=== PATIENT | female | born 1935 | race Caucasian/White ===

== ENCOUNTER → 2023-08-12 13:56 | Outpatient (REF) | payer MEDICARE, BC, SELFPAY | LOC: WOUND 13:56 | PROVIDERS: ATTENDING PHYSICIAN Surgery; REFERRING PHYSICIAN Internal Medicine | DX: I73.9 Peripheral vascular disease, unspecified (principal); L97.526 Non-pressure chronic ulcer of other part of left foot with bone involvement without evidence of necrosis; F41.1 Generalized anxiety disorder; M06.09 Rheumatoid arthritis without rheumatoid factor, multiple sites | CPT/HCPCS: 99213 ==

== ENCOUNTER → 2023-08-26 13:44 | Outpatient (REF) | payer MEDICARE, BC, SELFPAY | LOC: WOUND 13:44 | PROVIDERS: ATTENDING PHYSICIAN Surgery; FAMILY PHYSICIAN Internal Medicine | DX: L97.526 Non-pressure chronic ulcer of other part of left foot with bone involvement without evidence of necrosis (principal); I73.9 Peripheral vascular disease, unspecified; F41.1 Generalized anxiety disorder; M06.09 Rheumatoid arthritis without rheumatoid factor, multiple sites | CPT/HCPCS: 99213 ==

== ENCOUNTER → 2023-08-30 11:01 | Outpatient (REF) | payer MEDICARE, BC, SELFPAY | LOC: RAD 11:01 | PROVIDERS: ATTENDING PHYSICIAN Surgery; FAMILY PHYSICIAN Internal Medicine; REFERRING PHYSICIAN Surgery Vascular Surgery | DX: L97.526 Non-pressure chronic ulcer of other part of left foot with bone involvement without evidence of necrosis (principal); I73.9 Peripheral vascular disease, unspecified; F41.1 Generalized anxiety disorder; M06.09 Rheumatoid arthritis without rheumatoid factor, multiple sites | CPT/HCPCS: 93922; 93925 ==

== ENCOUNTER → 2023-09-02 14:19 | Outpatient (REF) | payer MEDICARE, BC, SELFPAY | LOC: WOUND 14:19 | PROVIDERS: ATTENDING PHYSICIAN Surgery; FAMILY PHYSICIAN Internal Medicine | DX: L97.526 Non-pressure chronic ulcer of other part of left foot with bone involvement without evidence of necrosis (principal); L97.512 Non-pressure chronic ulcer of other part of right foot with fat layer exposed; I73.9 Peripheral vascular disease, unspecified; F41.1 Generalized anxiety disorder; M06.9 Rheumatoid arthritis, unspecified | CPT/HCPCS: 99213 ==

== ENCOUNTER → 2023-09-09 14:24 | Outpatient (REF) | payer MEDICARE, BC, SELFPAY | LOC: WOUND 14:24 | PROVIDERS: ATTENDING PHYSICIAN Surgery; FAMILY PHYSICIAN Internal Medicine | DX: L97.526 Non-pressure chronic ulcer of other part of left foot with bone involvement without evidence of necrosis (principal); L97.512 Non-pressure chronic ulcer of other part of right foot with fat layer exposed; I73.9 Peripheral vascular disease, unspecified; F41.1 Generalized anxiety disorder; M06.09 Rheumatoid arthritis without rheumatoid factor, multiple sites | CPT/HCPCS: 99212 ==

== ENCOUNTER → 2023-09-16 15:07 | Outpatient (REF) | payer MEDICARE, BC, SELFPAY | LOC: WOUND 15:07 | PROVIDERS: ATTENDING PHYSICIAN Surgery; FAMILY PHYSICIAN Internal Medicine | DX: I73.9 Peripheral vascular disease, unspecified (principal); L97.526 Non-pressure chronic ulcer of other part of left foot with bone involvement without evidence of necrosis; L97.512 Non-pressure chronic ulcer of other part of right foot with fat layer exposed; F41.1 Generalized anxiety disorder; M06.09 Rheumatoid arthritis without rheumatoid factor, multiple sites | CPT/HCPCS: 99212 ==

== ENCOUNTER 2024-09-20 11:27 | Emergency (ER) | payer MEDICARE, BC, SELFPAY ==
[2024-09-20] VITALS (7 sets, daily range): BP systolic 87–163; BP diastolic 41–78; BMI 19.1
[2024-09-20 12:05] LABS: % Basophils 0.8 % (0-2); % Eosinophils 5.8 % (0-6); % Immature Granulocytes 0.4 % (0-0.5); % Lymphocytes 13.9 % (20.5-51.1); % Monocytes 10.1 % (1.7-9.3); Absolute Basophils 0.1 10^3/uL (0-0.2); Absolute Eosinophils 0.4 10^3/uL (0-0.7); Absolute Monocytes 0.7 10^3/uL (0.1-0.6); Absolute Neutrophils 4.9 10^3/uL (1.4-6.5); Hematocrit 35.7 % (37.0-47.0); Hemoglobin 11.8 g/dL (12.0-16.0); Mean Corp Hgb Conc. 33.1 g/dL (33.0-37.0); Mean Corpuscular Hgb 30.9 pg (27.0-31.0); Mean Corpuscular Volume 93.5 fL (81.0-99.0); Mean Platelet Volume 10.6 fL (7.4-10.4); Nucleated Red Blood Cells % 0 %; Platelet Count 218 10^3/uL (130-400); Red Blood Cell Count 3.82 10^6/uL (4.20-5.40); Red Cell Dist. Width 14.1 % (11.5-14.5); White Blood Cell Count 7.1 10^3/uL (4.8-10.8)
[2024-09-20 12:22] LABS: ALT (SGPT) 19 U/L (0-35); AST (SGOT) 25 U/L (14-36); Albumin 3.5 g/dl (3.5-5.0); Alkaline Phosphatase 58 U/L (38-126); Blood Urea Nitrogen 24 mg/dl (7-17); Calcium 9.6 mg/dl (8.4-10.2); Carbon Dioxide 32 mmol/L (22-30); Chloride 104 mmol/L (98-107); Estimated Creatinine Clearance 43 ml/min; Glucose 106 mg/dl (70-99); Potassium 4.2 mmol/L (3.5-5.1); Sodium 138 mmol/L (135-145); Total Bilirubin 0.8 mg/dl (0.2-1.3); Total Protein 5.9 g/dl (6.3-8.2); eGFR > 60.00
--- NOTE | 2024-09-20 12:23 | ED.GENMED ---
History of Present Illness
General
Chief Complaint: Fainting Sensation
Source: patient
Exam Limitations: none
Time Seen by Provider: 09/20/24 11:39
Nursing documentation reviewed up to this point in time: agreed with
History of Present Illness
History of Present Illness:
89-year-old female from [facility] history of orthostatic hypotension presents with feeling dizzy after doing aerobic seated and standing, no chest pain no shortness of breath no abdominal pain no nausea or vomiting no bloody stools no black
stools no hematuria
Past History
Past History
ED Past Medical History: Asthma and Other (Orthostasis)
ED Past Surgical History: None
Social History
Tobacco: Non-smoker
Alcohol: None
Drug: None
Personal:
Living: with family
Employment: Retired
Review of Systems
Review of Systems
All Other Systems: Not applicable
Constitutional: Denies fever or fatigue
EENT: Reports no symptoms
Respiratory: Reports no symptoms; Denies trouble breathing
Cardiac: Reports no symptoms; Denies chest pain, palpitations or syncope
ABD/GI: Denies abdominal pain, nausea, diarrhea, bloody stools or black stools
: Reports no symptoms; Denies bleeding
Musculoskeletal: Reports no symptoms
Neurological: Reports weakness; Denies dizzy, headache or numbness
Endocrine: Reports no symptoms
Phy Exam
Physical Exam
Physical Exam:
Physical Exam
General: no apparent distress, not acutely ill
Neck: No jaundice
Heart: s1/s2 regular rate and rhythm, no murmur. equal radial pulses.
Lungs: no acute respiratory distress. clear bilaterally
Abdomen: Nontender
Neuro: alert and oriented. no focal neurological deficits
Skin: no rash
Psychiatric: well kept. interactive and cooperative
Extremities: no edema.
Course
Orders/Labs/Results
Orders:
Orders
09/20/24 11:46
Electrocardiogram (*1) Urgent
Reason for Study: Chest Pain
EKG- Treatment ONCE
09/20/24 11:48
Complete Blood Count/With Diff Urgent
Comprehensive Metabolic Panel Urgent
Troponin I Urgent
Abnormal Lab Results
09/20/24
11:48
RBC 3.82 L 10^6/uL
(4.20-5.40)
Hgb 11.8 L g/dL
(12.0-16.0)
Hct 35.7 L %
(37.0-47.0)
MPV 10.6 H fL
(7.4-10.4)
Absolute Lymphs (auto) 1.0 L 10^3/uL
(1.2-3.4)
Absolute Monos (auto) 0.7 H 10^3/uL
(0.1-0.6)
Lymphocytes % 13.9 L %
(20.5-51.1)
Monocytes % 10.1 H %
(1.7-9.3)
Carbon Dioxide 32 H mmol/L
(22-30)
BUN 24 H mg/dl
(7-17)
Glucose 106 H mg/dl
(70-99)
Total Protein 5.9 L g/dl
(6.3-8.2)
09/20/24 11:48
09/20/24 11:48
Vital Signs
Initial and Last Documented VS:
Initial Vital Signs
BP
98/54
09/20/24 11:31
Last Documented Vital Signs
Temp Pulse Resp BP Pulse Ox
98.4 F 65 22 163/62 99
09/20/24 11:33 09/20/24 14:00 09/20/24 14:00 09/20/24 13:45 09/20/24 14:00
MDM/Problems Addressed
Differential Diagnosis Includes:
Dehydration orthostasis anemia arrhythmia orthostatic hypotension
MDM/Problems Addressed:
Low blood pressure dizziness
Chronic conditions affecting care:
Ortho stasis
Acute Exacerbation and/or Progression of Chronic Illness:
Orthostasis
*Pulse Oximetry
Patient hypoxic: no
*EKG
Interpreted by ED Provider?: Yes
Interpretation: abnormal
Comparison EKG: no comparison EKG present
Heart Rate: 78
Rate: normal
Rhythm: sinus
Ischemia: non-specific ST changes
*Supervisor Of Operations Interpretation
Rate: normal
Interpretation: normal
Heart Rate: 78
Rhythm: sinus
*Critical Care Note
Total Time (30-74mins, 75-104mins- exclusive of procedures): Not Applicable
Update Note
Update Note:
Update labs are noted, slightly elevated BUN to creatinine ratio, hemoglobin noted patient adamantly denies any dark or bloody stools or hematuria, does have some low blood pressure here will hydrate keep her on the cardiac monitor technician she has a clear
mental status she would like to go home to get her pharmacy meds to 230 delivery
215 patient vital signs of improved
ED Attending Note
-
Portions of this chart may have been created with voice recognition software.� Occasional wrong word or��sound alike� substitutions may have occurred due to the inherent limitations of voice recognition software.
Discharge Plan
Departure
Patient Disposition: Home (Routine Discharge)
Date of Disposition: 09/20/24
Time of Disposition: 14:15
Patient with high blood pressure during this ER visit?: No
Condition: Good
Discharge Problem:
Orthostasis
Instructions: Near Fainting (DC), Dizziness in adults - ED discharge instructions
Prescriptions:
No Action
gabapentin 100 MG capsule
100 mg PO DAILY
gabapentin 100 MG capsule
200 mg PO DAILY
hydroxychloroquine 200 MG tablet
400 mg PO DAILY
fluoxetine 20 MG capsule
20 mg PO DAILY
lorazepam 0.5 MG tablet
0.5 mg PO HS
fluticasone propionate 1 SPRAY spray,suspension
1 spray intranasal DAILY
mometasone [Asmanex Twisthaler] 110 MCG aerosol powdr breath activated
110 mcg IH DAILY
Referrals:
Mary Calvin MD [Family Provider] -
Interventions
Interventions:
*Risk Screen - Suicide Last Done: 09/20/24 11:33
*General Assessment Last Done: 09/20/24 11:33
*Neglect/Abuse Screening Last Done: 09/20/24 11:33
*ED- Fall Risk Assessment Last Done: 09/20/24 11:33
ED- Cardiac Assessment Last Done: 09/20/24 11:33
ED- Neurological Assessment Last Done: 09/20/24 11:38
Discharge Date and Time
Print Language: GERMAN
[2024-09-20 12:29] LABS: Troponin I < 0.012 ng/ml
== END 2024-09-20 14:44 ==
LOC: EMR 11:27
PROVIDERS: EMERGENCY PHYSICIAN Emergency Medicine; FAMILY PHYSICIAN Internal Medicine Geriatric Medicine
DX: R55 Syncope and collapse (principal); R42 Dizziness and giddiness; J45.909 Unspecified asthma, uncomplicated; R79.89 Other specified abnormal findings of blood chemistry
CPT/HCPCS: 99284; 80053; 84484; 85025; 93005

== ENCOUNTER 2025-02-11 17:13 | Inpatient (IN) | payer MEDICARE, BC, SELFPAY ==
[2025-02-11] VITALS (30 sets, daily range): BP systolic 82–211; BP diastolic 37–120; BMI 21.1; BMI 20.1
[2025-02-11 14:13] LABS: Hematocrit 38.8 % (37.0-47.0); Hemoglobin 12.6 g/dL (12.0-16.0); Mean Corp Hgb Conc. 32.5 g/dL (33.0-37.0); Mean Corpuscular Volume 93.0 fL (81.0-99.0); Nucleated Red Blood Cells % 0 %; Platelet Count 223 10^3/uL (130-400); Red Cell Dist. Width 13.2 % (11.5-14.5)
--- NOTE | 2025-02-11 14:31 | ED.CVA ---
History of Present Illness
General
Chief Complaint: CVA/TIA Symptoms
Source: patient
Exam Limitations: none
Time Seen by Provider: 02/11/25 13:54
Onset of Stroke Symptoms
Onset of symptoms known: No
Time pt last seen normal is known: No
History of Present Illness
History of Present Illness:
89-year-old female presents via EMS from [facility] after being found by staff to have weakness on left side. Patient tells me she passed out. Her history is somewhat unclear but she was bending over to reach a knife she
dropped. Patient does note a headache. She has not noticed any visual issues. She does note that her left arm started feeling weak like this may be sometime last night. Last seen normal was last evening.
Past History
Past History
ED Past Medical History: Asthma and Other (Orthostasis)
ED Past Surgical History: None
Social History
Tobacco: Non-smoker
Alcohol: None
Drug: None
Personal:
Living: with family
Employment: Retired
Phy Exam
Physical Exam
Physical Exam:
General: Well-appearing female no acute respiratory distress
HEENT: Normocephalic face is symmetric pupils equal round reactive to light. Patient does have a rightward gaze.
Heart: Regular rate and rhythm
Lungs: Clear no wheeze
Neurologic: Alert oriented to person and place. No facial asymmetry. Patient has a visual field cut on the left side. There is profound weakness of the left arm. No obvious weakness to the left leg.
There does not appear to be any aphasia or dysarthria
Course
Orders/Labs/Results
Orders:
Orders
02/11/25 14:06
Comprehensive Metabolic Panel Urgent
02/11/25 14:07
CT HEAD STROKE ALERT W/o Cont Urgent
Reason For Exam: left sided weakness
Complete Blood Count/With Diff Urgent
02/11/25 14:08
Electrocardiogram (*1) Urgent
Reason for Study: TIA/Stroke
EKG- Treatment ONCE
02/11/25 14:11
CT HEAD/NECK ANG STROKE ALERT Urgent
Reason For Exam: left sided weakness
02/11/25 14:18
CT Brain Perfusion Urgent
Comment:
Reason For Exam: left arm weakness
02/11/25 15:18
Tenecteplase [Tnkase] 13 mg Syringe [Syringe Non-Pump] 0 ml IV NOW
Provider explained risk/benefits to patient &/or caregiver?: Yes
Comment: Dtsergio Anne consented over phone
Blood pressure: 123/47
Abnormal Lab Results
02/11/25 02/11/25
14:06 14:07
RBC 4.17 L 10^6/uL
(4.20-5.40)
MCHC 32.5 L g/dL
(33.0-37.0)
Absolute Neuts (auto) 7.3 H 10^3/uL
(1.4-6.5)
Absolute Lymphs (auto) 1.0 L 10^3/uL
(1.2-3.4)
Absolute Monos (auto) 0.9 H 10^3/uL
(0.1-0.6)
Neutrophils % 75.6 H %
(42.2-75.2)
Lymphocytes % 9.9 L %
(20.5-51.1)
Carbon Dioxide 31 H mmol/L
(22-30)
BUN 23 H mg/dl
(7-17)
Glucose 107 H mg/dl
(70-99)
02/11/25 14:07
02/11/25 14:06
Vital Signs
Initial and Last Documented VS:
Initial Vital Signs
Temp Pulse Resp BP Pulse Ox
98.1 F 57 21 123/47 98
02/11/25 13:46 02/11/25 13:46 02/11/25 13:46 02/11/25 13:46 02/11/25 13:46
Last Documented Vital Signs
Temp Pulse Resp BP Pulse Ox
98.1 F 57 21 123/47 98
02/11/25 13:46 02/11/25 13:46 02/11/25 13:46 02/11/25 13:46 02/11/25 14:35
MDM/Problems Addressed
Differential Diagnosis Includes:
Left sided weakness with visual field cut. Concern for recent stroke. Last normal last evening. She is not anticoagulated. Given timing at this point not a TNK candidate however did run this by neurology. CT of head CTA angio of head and neck
as well as perfusion study were ordered. Stroke alert called
Report from radiology plain CT of head without acute findings
*Pulse Oximetry
SaO2: 98
Oxygen Mode of Delivery: Room air
Patient hypoxic: no
*Critical Care Note
Total Time (30-74mins, 75-104mins- exclusive of procedures): Not Applicable
Update Note
Update Note:
6 patient seen and evaluated by neurology. CT perfusion study was ordered on top of angio of head and neck. Plain CT head negative. Perfusion study did show 28 cc area of penumbra. Neurology discussed with patient and patient's family and
suggested an off label use of TNK secondary to her large deficit and penumbra on CTP. TNK was ordered by neurology. Admitting team was made aware
ED Attending Note
-
Portions of this chart may have been created with voice recognition software.� Occasional wrong word or��sound alike� substitutions may have occurred due to the inherent limitations of voice recognition software.
Discharge Plan
Departure
Patient Disposition: Admit
Date of Disposition: 02/11/25
Time of Disposition: 15:31
Presentation/result/management discussed w/ accepting MD/DO: Hospitalist
Patient with high blood pressure during this ER visit?: No
Discharge Problem:
Acute cerebrovascular accident (CVA)
Prescriptions:
No Action
gabapentin 100 MG capsule
100 mg PO DAILY
gabapentin 100 MG capsule
200 mg PO DAILY
hydroxychloroquine 200 MG tablet
400 mg PO DAILY
lorazepam 0.5 MG tablet
0.5 mg PO HS
propranolol 10 mg Tablet
10 mg PO BID
sertraline 25 mg Tablet
25 mg PO DAILY
mirtazapine 15 mg Tablet
15 mg PO HS
Rx Instructions:
half tab
melatonin 5 mg Tablet
5 mg PO HS PRN (Reason: sleep)
Referrals:
Mary Calvin MD [Family Provider, Internal Medicine]
Interventions
Interventions:
*General Assessment Last Done: 02/11/25 13:46
*Neglect/Abuse Screening Last Done: 02/11/25 13:46
ED- Neurological Assessment Last Done: 02/11/25 15:30
Discharge Date and Time
Print Language: UKRAINIAN
[2025-02-11 14:33] LABS: ALT (SGPT) 16 U/L (0-35); AST (SGOT) 21 U/L (14-36); Albumin 3.8 g/dl (3.5-5.0); Alkaline Phosphatase 62 U/L (38-126); Blood Urea Nitrogen 23 mg/dl (7-17); Calcium 9.8 mg/dl (8.4-10.2); Carbon Dioxide 31 mmol/L (22-30); Chloride 104 mmol/L (98-107); Glucose 107 mg/dl (70-99); Potassium 4.8 mmol/L (3.5-5.1); Sodium 139 mmol/L (135-145); Total Protein 6.3 g/dl (6.3-8.2); eGFR > 60.00
--- NOTE | 2025-02-11 15:24 | CON.NEURO ---
Neuro Assessment/Plan
Assessment
CT perfusion showing right parietal stroke, 3cc core, 28 cc penumbra
CTA head/neck imgs rev'd, no LVO. report showing right ICA focal calcification, 41% stenosis, streak artifact
patient treated with TNK, off label as it is out of the 4.5 hr window though good evidence for use of TNK 4.5-24 hrs with favorable perfusion scan
Dtsergio Anne consented over the phone, as patient with difficulty comprehending. delay due to calling multiple family members trying to get informed consent
post TNK routine care Admit to MICU for 24 hours of frequent neurochecks.�
neurochecks q1, Frequent vital signs Q15min x 2hrs, then Q30min x 6hrs, then Q1H x 16hrs until stable from the start of TNK.�
�tele, accuchecks/ISS. Repeat Head CT in 24 hours
Blood pressure goals: <180/105 and MAP 80-100� in the acute period.� If BP elevated for 2 readings, preferred agents include IV labetalol or nicardipine.� Vasopressors as necessary to maintain MAP and CPP.�
Glucose goals: Maintain euglycemia using sliding scale insulin. If glucose >180 for two consecutive readings, please use MICU insulin protocol.�Temperature goals: maintain normothermia
Consultation
Order
Date of Consultation: 02/11/25
Requesting Provider: Popeye
Reason for Consult: stroke
Subjective/Objective
Subjective Data
Date of Service: February 11, 2025
from ED notes:
89-year-old female presents via EMS from [facility] after being found by staff to have weakness on left side. Patient tells me she passed out. Her history is somewhat unclear but she was bending over to reach a knife she
dropped. Patient does note a headache. She has not noticed any visual issues. She does note that her left arm started feeling weak like this may be sometime last night. Last seen normal was last evening.
patient reports waking up with the symptoms ~7:30 AM
Was not initially a stroke alert as she was out of the 4.5 hr window however over the phone I advised stroke alert/CTA/perfusion based on presence of cortical signs, and potential for thrombectomy and saw the patient emergently when perfusion scan
showed 3 cc core and 28 cc penumbra on rapid ai.
Objective Data
Vital Signs
Temp Pulse Resp BP Pulse Ox
36.7 C 57 21 123/47 98
02/11/25 13:46 02/11/25 13:46 02/11/25 13:46 02/11/25 13:46 02/11/25 14:35
Lab Results
02/11/25 14:07
02/11/25 14:06
Sodium 139 mmol/L (135-145) 02/11/25 14:06
Potassium 4.8 mmol/L (3.5-5.1) 02/11/25 14:06
BUN 23 mg/dl (7-17) H 02/11/25 14:06
Glucose 107 mg/dl (70-99) H 02/11/25 14:06
Calcium 9.8 mg/dl (8.4-10.2) 02/11/25 14:06
Patient Allergies
chocolate flavor Allergy (Verified 02/11/25 13:57)
respiratory symptoms
[place] And Derivatives Allergy (Verified 02/11/25 13:57)
eczema
latex Allergy (Verified 02/11/25 13:57)
unsure, tested high
dairy products Allergy (Uncoded 02/11/25 13:57)
respiratory, mild
environmental allergies Allergy (Uncoded 02/11/25 13:57)
respiratory symptoms
melons Allergy (Uncoded 02/11/25 13:57)
respiratory symptoms
opiates, codeine + morphine Allergy (Uncoded 02/11/25 13:57)
violently ill
CVA Assessment
Onset of Stroke Symptoms
Time pt last seen normal is known: Yes
Date last time pt seen normal: 02/10/25
NIH Stroke Score
Level of Consciousness: 0 - Alert
LOC Questions: 0-Answers both correctly
LOC Commands: 0-Performs both correctly
Best Horizontal Gaze: 0-Normal
Visual Oliveros: 2=Full hemianopia
Facial Palsy: 1=Minor paralysis
Motor - Right Arm: 0=No drift 10 seconds
Motor - Left Arm: 2=Partial vs. gravity
Motor - Right Le-No drift 5 seconds
Motor - Left Le-Drift < 5 seconds
Limb Ataxia: 0-Absent
Sensation: 0-Normal
Best Language: 0-No aphasia
Dysarthria: 0-Normal
Extinction and Inattention: 0-No abnormality
NIH Total Score:: 6
Physical Exam
-
left homonymous hemianopsia
L facial droop
LUE/LE grossly 4/5
right side full strength
Medications
-
Active Medications
Generic Name Dose Route Start Last Admin
Trade Name Frejustina PRN Reason Stop Dose Admin
Tenecteplase 13 mg/ Device 2.6 mls @ 1,872 mls/hr 02/11/25 15:18
IV 02/11/25 15:19
NOW STA
Protocol
Home Medications
�Medication �Instructions �Recorded
fluoxetine 20 mg capsule 20 mg PO DAILY 11/15/16
fluticasone propionate 50 1 spray intranasal DAILY 11/15/16
mcg/actuation nasal
spray,suspension
gabapentin 100 mg capsule 100 mg PO DAILY 11/15/16
gabapentin 100 mg capsule 200 mg PO DAILY 11/15/16
hydroxychloroquine 200 mg tablet 400 mg PO DAILY 11/15/16
lorazepam 0.5 mg tablet 0.5 mg PO HS 11/15/16
mometasone 110 mcg/actuation (7 110 mcg IH DAILY 11/15/16
doses) breath activated powder
inhaler (Asmanex Twisthaler)
[2025-02-11] MEDS: TNKASE 2.6 MG IV (15:30)
--- NOTE | 2025-02-11 15:41 | HPS.HSE ---
Family Physician
-
Family Physician: Mary Calvin
Chief Complaint
-
Left Sided Weakness
History of Present Illness
Patient is an 89 y/o female past medical history of asthma, orthostatic hypotension, peripheral neuropathy and mild cognitive impairment who presents with left sided weakness. Patient is a limited historian. Patient tells me she did get dizzy and
passed out/fell. Some notes indicate she did hit her head. She was found on the floor of her apartment at [facility] and was noted to have left sided weakness. EMS brought patient to the emergency department evaluation and a stroke alert was
called. Patient was evaluated by Neurology who noted left visual field cut, left facial droop and left sided weakness. Decision was made for patient to receive Tenecteplase due significant deficits. Reviewed with nursing who reports that left sided
weakness is improving following Teneceplase. However shortly after my evaluation patient began complaining of increased posterior head/neck pain
Medical History
Past Medical History
Past Medical History: Reports Other
Additional Past Medical History:
Asthma / Bronchiectasis
Orthostatic Hypotension
Peripheral Neuropathy
Rheumatoid Arthritis
Mild Cognitive Impairment
Anxiety / Depression / Insomnia
Chronic Constipation
Past Surgical History: Reports Other
Additional Past Surgical History:
Right Shoulder Rotator Cuff Repair
Santillan Neuroma Removal
Cataract
Social History
Tobacco: Non-smoker
Living: Other (Apartment at [facility])
Family History
Family History: Not pertinent
Allergies / Home Medications
Allergies reflects when Allergies were last updated in [employer].
Home Medications with original date entered in [employer]
Allergy/Medication List:
Allergies
Allergy/AdvReac Type Severity Reaction Status Date / Time
chocolate flavor Allergy respiratory Verified 02/11/25 13:57
symptoms
[place] And Derivatives Allergy eczema Verified 02/11/25 13:57
latex Allergy unsure, Verified 02/11/25 13:57
tested high
dairy products Allergy respiratory, Uncoded 02/11/25 13:57
mild
environmental allergies Allergy respiratory Uncoded 02/11/25 13:57
symptoms
melons Allergy respiratory Uncoded 02/11/25 13:57
symptoms
opiates, codeine + morphine Allergy violently Uncoded 02/11/25 13:57
ill
Home Medications
hydroxychloroquine 200 mg tablet 200 mg PO DAILY 11/15/16
lorazepam 0.5 mg tablet 0.5 mg PO BID 11/15/16
calcium 315 mg (as citrate)-vitamin D3 5 mcg (200 unit) tablet (Calcium Citrate + D) 1 tab PO DAILY 02/11/25
carboxymethylcellulose sodium 1 % eye drops (Artificial Tears (carboxymethylcellulose)) 1 drp ophthalmic (eye) QID 02/11/25
gabapentin 300 mg capsule 300 mg PO HS 02/11/25
melatonin 5 mg tablet 5 mg PO HS sleep 02/11/25
mirtazapine 15 mg tablet 7.5 mg PO HS 02/11/25
mometasone 220 mcg/actuation(30 doses) breath activated powder inhaler (Asmanex Twisthaler) 1 inh inhalation HS 02/11/25
multivitamin 1 tab PO DAILY 02/11/25
polyethylene glycol 3350 17 gram/dose oral powder (Miralax) 17 g PO BID 02/11/25
propranolol 10 mg tablet 10 mg PO BID 02/11/25
sertraline 25 mg tablet 25 mg PO DAILY 02/11/25
Review of Systems
-
Unable to obtain full review of systems at this time due to: Other (Cognitive Impairment)
Physical Exam
Vital Signs
Vital Signs
Temp Pulse Resp BP Pulse Ox
98.1 F 63 16 146/60 98
02/11/25 13:46 02/11/25 15:32 02/11/25 15:32 02/11/25 15:32 02/11/25 14:35
Physical Exam
General: Comfortable and Conversant
HEENT: Anicteric and Moist mucous membranes
Respiratory: Clear and Non Labored Respirations
Cardiac: S1/S2 and Regular Rhythm
GI: Soft and Non Tender
Rectal: Deferred by Provider
Musculoskeletal: No Clubbing, No Cyanosis and No Edema
Skin: Warm and Dry
Neuro: Awake, Alert, No Motor Deficits (During my evaluation) and Facial Droop (Left facial )
Psych: Calm
Laboratory Results
-
02/11/25 14:07
02/11/25 14:06
Laboratory Results
Total Bilirubin 0.6 mg/dl (0.2-1.3) 02/11/25 14:06
AST 21 U/L (14-36) 02/11/25 14:06
ALT 16 U/L (0-35) 02/11/25 14:06
Alkaline Phosphatase 62 U/L (38-126) 02/11/25 14:06
Data Reviewed
-
CT Scan: Report Reviewed by me
Lab Data: Labs Reviewed by me
Impression/Plan
-
Acute Right Parietal Stroke
-Patient evaluated by Neurology and given TNK in ED
-Follow-up post-TNK protocol with frequent neurochecks, bedrest and no antiplatelets
-Blood pressure goals: <180/105 and MAP 80-100 in acute setting
-Check Brain MRI
-Check Carotid US as Neck CT indicates focal calcification of right internal carotid artery but limited evaluation due to streak artifact
Asthma / Bronchiectasis, no acute exacerbation
-Continue Asmanex
Peripheral Neuropathy
-Continue gabapentin
Mild Cognitive Impairment
-Monitor mental status
Anxiety / Depression / Insomnia
-Continue lorazepam
-Continue sertraline
-Continue mirtazapine and melatonin
Rheumatoid Arthritis
-Continue hydroxychloroquine
DVT proph: SCDs
Code Status: DNR per Transfer Paperwork and confirmed with daughter Omid via phone at time of admission
[2025-02-11] MEDS: APRESOLINE 5 MG IV (17:00)
[2025-02-11 17:47] LABS: Glucose - Point of Care 87 mg/dl (70-99)
--- NOTE | 2025-02-11 19:17 | W.PN.UPDATE ---
Update Note
Progress Note Update
Patient seen independently.
Please see PA note for full details
89 y/o woman with the past medical history of:
asthma,
orthostatic hypotension,
peripheral neuropathy
mild cognitive impairment
presents with left sided weakness. (Patient is a limited historian). She reports that she felt dizzy and passed out/fell. She was found on the floor of her apartment at [facility] and was noted to have left sided weakness. Patient was evaluated
by Neurology who noted left visual field cut, left facial droop and left sided weakness. The decision was made for patient to receive Tenecteplase due significant deficits. Nursing in the ED reports that left sided weakness improved following
Teneceplase.
Past Medical History
Asthma / Bronchiectasis
Orthostatic Hypotension
Peripheral Neuropathy
Rheumatoid Arthritis
Mild Cognitive Impairment
Anxiety / Depression / Insomnia
Chronic Constipation
Right Shoulder Rotator Cuff Repair
Santillan Neuroma Removal
Cataract
Physical Exam
General: Comfortable
Respiratory: Clear
Cardiac: S1/S2
GI: Soft
Skin: Warm
Neuro: Awake, Facial Droop (Left facial )
Psych: Calm
Impression/Plan
1. Acute Right Parietal Stroke - evaluated by Neurology and given TNK in ED
post-TNK protocol
BP goals: <180/105 and MAP 80-100 in acute setting
Brain MRI
Carotid US
Please see PA note for full details on
Asthma / Bronchiectasis, no acute exacerbation
Peripheral Neuropathy
Mild Cognitive Impairment
Anxiety / Depression / Insomnia
Rheumatoid Arthritis
--- NOTE | 2025-02-11 20:30 | W.PN.UPDATE ---
Update Note
Progress Note Update
02/11/25
1999- Family requested update and answered all questions. Patient having some headache/pain located where hematoma is on back of the head. Will give prn Tylenol and lidocaine patch for back of the neck.
[2025-02-11] MEDS: MIRALAX 17 GRAMS PO (20:32)
[2025-02-11] MEDS: ATIVAN 0.5 MG PO (20:32)
[2025-02-11] MEDS: INDERAL 10 MG PO (20:33)
[2025-02-11] MEDS: TYLENOL 650 MG PO (20:34)
[2025-02-11] MEDS: LIDOCAINE 4% PATCH 1 PATCH TOPICAL (20:35)
--- NOTE | 2025-02-11 20:45 | PTCARENOTE ---
At 15:30 patient admitted from ED status post TNK administered at 15:30; NIH done with ER nurse at bedside with score of 4 with deficit of left arm and left eye vision;
AAO x 3 Anxiety
normal sinus rhythm no edema
on RA lungs clear
Abdomen soft round
voided on bedpan
left arm: pt tends to keep her left arm flex but able to keep it straight, able to make fist able to lift arm off bed slightly .
[2025-02-11] MEDS: FLOVENT 44 MCG INHALER 1 PUFF INH (21:17)
--- NOTE | 2025-02-11 21:30 | PTCARENOTE ---
Report received from previous shift RN [id number]. Pt in bed with family members at bedside. Tandem NIHSS performed with offgoing shift RN, see flowsheet for full neuro assessment details. Pt is AAO3, anxious, pupils equal/reactive, tremor noted in R
hand. Pt reports chronic neuropathy in b/l feet. Reports pain in L shoulder and hip and posterior headache (unchanged from earlier in day). Telemetry rhythm reveals SR, HR 70-80's, no edema noted, palpable peripheral pulses present, knee high SCDs
placed per MD order. Lung sounds are clear throughout, decreased in b/l base, pt denies SOB/cough, pox 95-97% on room air. +BS, abdomen round nontender. Pt passed swallow evaluation performed on previous shift. Assisted pt onto bedpan, voided yellow
urine without incidence. L w int and R AC int's flushed and patent, capped. Skin with scattered bruising from fall prior to admission. Posterior scalp with large bruise, ice pack provided.
Pt's daughters arrived at bedside. Audra COMMERCIAL COLLECTIONS SPECIALIST to room and answered all questions. COMMERCIAL COLLECTIONS SPECIALIST ordered lidoderm patch for posterior neck. PRN Tylenol administered for headache.
Safe environment maintained, call villalba within reach. Will monitor closely.
[2025-02-11] MEDS: REMERON 7.5 MG PO (22:04)
[2025-02-11] MEDS: NEURONTIN 300 MG PO (22:05)
[2025-02-11] MEDS: MELATONIN 5 MG PO (22:05)
[2025-02-11 22:29] LABS: INR 0.91; PT 12.6 Sec (11.4-14.6)
[2025-02-11 22:30] LABS: APTT 20.3 Sec (23.4-35.0)
[2025-02-11] MEDS: NSS 1000 IV (23:56)
--- NOTE | 2025-02-11 23:57 | PTCARENOTE ---
Pt sleeping whe undisturbed, wakens easily to verbal stimuli. Denies current headache.
Pt's SBP in the 80's, notified state federal relations deputy director RELOCATION MANAGER, Audra. RELOCATION MANAGER orderd bolus to infuse over 2 hours and then follow with maintenance IVF.
Will monitor.
[2025-02-12] VITALS (31 sets, daily range): BP systolic 87–155; BP diastolic 35–78; BMI 20.5
[2025-02-12] MEDS: NSS 1000 IV ×2 (02:12→12:45)
[2025-02-12 03:48] LABS: Hematocrit 33.1 % (37.0-47.0); Hemoglobin 10.8 g/dL (12.0-16.0); Mean Corp Hgb Conc. 32.6 g/dL (33.0-37.0); Mean Corpuscular Volume 93.5 fL (81.0-99.0); Platelet Count 189 10^3/uL (130-400); Red Cell Dist. Width 13.1 % (11.5-14.5)
--- NOTE | 2025-02-12 04:00 | PTCARENOTE ---
Pt sleeping when undisturbed. Wakens easily to verbal stimuli. Pt's BP improved with IVF bolus/continuous IVF, reviewed w YONG Mccoy. Repositioning pt Q2H for skin integrity. Pt's bruising on her posterior head has extended down to the L side of
her neck/behind her ear and bruising now noted on L scapula...bruising was outlined in black marker by RN.
Pt appears less ataxic than at the start of the shift, visual cuts remain unchanged. Will continue to monitor closely.
[2025-02-12 04:13] LABS: Blood Urea Nitrogen 16 mg/dl (7-17); Calcium 8.5 mg/dl (8.4-10.2); Carbon Dioxide 27 mmol/L (22-30); Chloride 109 mmol/L (98-107); Estimated Creatinine Clearance 52 ml/min; Glucose 111 mg/dl (70-99); HDL Cholesterol 69 mg/dl; LDL Cholesterol, Calculated 77 mg/dl; Magnesium 2.0 mg/dl (1.6-2.3); Potassium 4.1 mmol/L (3.5-5.1); Sodium 138 mmol/L (135-145); Very Low Density Lipoprotein 8 mg/dl (0-30); eGFR > 60.00
[2025-02-12 04:17] LABS: INR 0.96; PT 13.1 Sec (11.4-14.6)
[2025-02-12 04:18] LABS: APTT 23.1 Sec (23.4-35.0)
[2025-02-12] MEDS: FLOVENT 44 MCG INHALER INH (07:23)
[2025-02-12] MEDS: ATIVAN 0.5 MG PO ×2 (09:02→20:52)
[2025-02-12 09:03] LABS: Glycohemoglobin (HgbA1c) 5.7 % (4.0-5.6)
[2025-02-12] MEDS: PLAQUENIL 200 MG PO (09:03)
[2025-02-12] MEDS: ZOLOFT 25 MG PO (09:03)
[2025-02-12] MEDS: TYLENOL 650 MG PO ×2 (09:03→20:56)
[2025-02-12] MEDS: MIRALAX 17 GRAMS PO ×2 (09:04→20:52)
--- NOTE | 2025-02-12 09:12 | W.PN.NEURO.1 ---
Addendum entered and electronically signed by Noe Sarah MD 02/12/25 14:22:
Studies reviewed.
I have personally examined the patient. I reviewed and agree with the CUSTOMER STRATEGY MANAGER's Note.
My addenda:
Awake, alert, interactive. No acute distress.
Speech intact.
Follows 2-step requests w/o difficulty. No tremor.
Extra-ocular movements grossly intact.
Facial movements full and symmetric. Hearing intact to normal conversational volume.
Normal UE movements bilaterally.
Neck: full ROM.
Chest: no dyspnea
Heart: no JVD
Ext: (-) Clubbing, (-) Cyanosis, (-) Edema
IMPRESSIONS/RECOMMENDATIONS:
Abrupt onset of left-sided weakness with left homonymous hemianopsia following fall and injury to back of head
Likely due to right middle cerebral artery acute ischemic stroke
Would provide aspirin 81 mg starting 24 hours after tenecteplase provision
Goal of normotension
Will follow MRI of brain results
Start atorvastatin 40 mg due to LDL greater than 70 although limited probable help in a person of this advanced age
D/W patient / nursing
All questions answered.
Will continue to follow pending results.
Original Note:
Today's Communication / Plan
-
� goal normotension
� check MRI of the brain as planned
� hold all antiplatelets, OAC meds, DOAC meds, heparinoids 24 hours s/p TNK
� LDL 77 with goal <70, start atorvastatin 40mg nightly
� goal blood glucose levels for patient would be less than 180 mg/dL
� Speech, PT, OT evaluations needed
� Physiatry consultation warranted
� medical educational materials will be provided
� neurochecks and NIHSS per unit guidelines
Neuro Assessment/Plan
Assessment
Patient is an 89 y/o female past medical history of asthma, orthostatic hypotension, peripheral neuropathy and mild cognitive impairment who presented to [facility] on 02/11/2025 with left sided weakness now s/p TNK.
CTA head/neck imgs rev'd, no LVO. report showing right ICA focal calcification, 41% stenosis, streak artifact
CT perfusion showing right parietal stroke, 3cc core, 28 cc penumbra
Brain MRI: pending
Carotid US: pending
Labs: Cholesterol 154, LDL 77
patient s/p TNK on 02/11/2025 at 1519
Plan
Impression: Abrupt onset of left sided weakness, left visual field cut and left facial weakness in the setting of an acute ischemic stroke
Recommendations:
� goal normotension
� check MRI of the brain as planned
� hold all antiplatelets, OAC meds, DOAC meds, heparinoids 24 hours s/p TNK then may start aspirin 81 mg and clopidogrel 75 mg for 21 days followed by monotherapy with aspirin
� LDL 77 with goal <70, start atorvastatin 40 mg nightly
� goal blood glucose levels for patient would be less than 180 mg/dL
� Speech, PT, OT evaluations needed
� Physiatry consultation warranted
� medical educational materials will be provided
� neurochecks and NIHSS per unit guidelines
All questions encouraged and answered, plan of care discussed with Dr. Sarah, nurse and patient
Subjective/Objective
Subjective Data
Date of Service: February 12, 2025
Right handed. No acute events overnight. Denies SOB or chest pain. Continues to have vision difficulties. Continues to have weakness to LUE.
Objective Data
Vital Signs
Temp Pulse Resp BP Pulse Ox
97.9 F 59 16 136/42 97
02/12/25 08:10 02/12/25 07:30 02/12/25 07:30 02/12/25 07:30 02/12/25 07:30
Lab Results
02/12/25 03:28
02/12/25 03:28
PT 13.1 Sec (11.4-14.6) 02/12/25 03:28
INR 0.96 02/12/25 03:
APTT 23.1 Sec (23.4-35.0) L 02/12/25:
Sodium 138 mmol/L (135-145) 02/12/25 03:
Potassium 4.1 mmol/L (3.5-5.1) 02/12/25:
BUN 16 mg/dl (7-17) 02/12/25:
Glucose 111 mg/dl (70-99) H 02/12/25:
Calcium 8.5 mg/dl (8.4-10.2) 02/12/25
Phosphorus 4.0 mg/dl (2.5-4.5) 02/12/25:
LDL Cholesterol, Calc 77 mg/dl 02/12/25:
Patient Allergies
chocolate flavor Allergy (Verified 02/11/25 13:57)
respiratory symptoms
[place] And Derivatives Allergy (Verified 02/11/25 13:57)
eczema
latex Allergy (Verified 02/11/25 13:57)
unsure, tested high
dairy products Allergy (Uncoded 02/11/25 13:57)
respiratory, mild
environmental allergies Allergy (Uncoded 02/11/25 13:57)
respiratory symptoms
melons Allergy (Uncoded 02/11/25 13:57)
respiratory symptoms
opiates, codeine + morphine Allergy (Uncoded 02/11/25 13:57)
violently ill
Physical Exam
-
General: No Apparent Distress and Comfortable
HEENT: Normocephalic, Atraumatic and Anicteric
Neck: Full Range of Motion
Respiratory: No Dyspnea
Cardiac: No JVD
GI: Non-distended
Skin: Unremarkable
Extremities: No Clubbing, No Cyanosis and No Edema
Psych: Unremarkable
Extended Neurological Exam
Mood & Affect: Mood Unremarkable
Attention Span & Concentration: Awake, Alert, Interactive and No Difficulty with 2 Step Request
Memory: Unremarkable
Tremor: Hand Tremor Absent and Head Tremor Absent
Speech: Quality Unremarkable, Quantity Unremarkable and Rate of Production Unremarkable
Cranial Nerve II: Left Eye: Visual Oliveros Reduced
Cranial Nerve II: Right Eye: Visual Oliveros Intact
Cranial Nerves III, IV, : Extraocular Movement: Extraocular Movement Full in all Directions
Cranial Nerve VII: Facial Symmetry: Reduced (left)
Cranial Nerve VIII: Hearing: Unremarkable Hearing to Normal Conversational Volume
Muscle Strength, Overall: Reduced on Left (LUE 4+/5)
Pronator Drift: Drift in Left Upper Extremity
Coordination: [id number] Testing Unremarkable and Reaches for Objects without Difficulty
Data Reviewed
-
CT-A: Report Reviewed and Image Reviewed
CT-Perfusion: Report Reviewed and Image Reviewed
CT Head: Report Reviewed and Image Reviewed
MRI Head: Ordered
Carotid Ultrasound: Ordered and Pending
Labs: Report Reviewed
Lipid Profile: Report Reviewed
Reviewed with: Physician, Nurse and Patient
Old Records: Summarized
[2025-02-12] MEDS: INDERAL 10 MG PO ×2 (09:22→20:52)
--- NOTE | 2025-02-12 09:29 | PTOTSP ---
Speech Therapy Evaluation:
Pt with chronic risk factor of dysphagia including asthma/COPD, acutely compounded by acute CVA. Despite this, oropharyngeal swallow appears functional at bedside. No overt s/sx of aspiration across session, CXR without pneumonia, WBC WNL, and pt
without dysphagia hx.
Recommend:
1. Continue regular solids and thin liquids
2. Medications as tolerated
3. General aspiration precautions
4. Partial assistance with PO given L sided weakness
5. COLORER HIDES AND SKINS to follow to monitor tolerance of diet and administer cognitive assessment as appropriate.
--- NOTE | 2025-02-12 09:30 | W.PN.HOSP.TC ---
Today's Communication/Plan
-
MRI
Carotid US
f/w Neurology & ICU & speech, PT reommendations
Assessment / Plan
Assessment / Plan
Physical Exam
General: Comfortable and Conversant
HEENT: Anicteric and Moist mucous membranes
Respiratory: Clear and Non Labored Respirations
Cardiac: S1/S2 and Regular Rhythm
GI: Soft and Non Tender
Rectal: Deferred by Provider
Musculoskeletal: No Clubbing, No Cyanosis and No Edema
Skin: Warm and Dry
Neuro: Awake, Alert, No Motor Deficits (During my evaluation) and Facial Droop (Left facial )
Psych: Calm
Acute Right Parietal Stroke
-Patient evaluated by Neurology and given Tenecteplase 02/11
-Follow-up post-TNK protocol with frequent neuro-checks, bedrest and no antiplatelets
-Blood pressure goals: <180/105 and MAP 80-100 in acute setting
-Check Brain MRI
- HGB A1C 5.7
-Check Carotid US as Neck CT indicates focal calcification of right internal carotid artery but limited evaluation due to streak artifact
Appreciate neurology & ICU doctors help
Asthma / Bronchiectasis, no acute exacerbation
-Continue Asmanex
Peripheral Neuropathy
-Continue gabapentin
Mild Cognitive Impairment
-Monitor mental status
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
-Continue lorazepam
-Continue sertraline
-Continue mirtazapine and melatonin
Rheumatoid Arthritis
-Continue hydroxychloroquine
DVT proph: SCDs
Code Status: DNR per Transfer Paperwork and confirmed with daughter Omid via phone at time of admission
Total time spent to see the patient, examine the patient, review data and lab results, discuss treatment plan with patient, nursing staff around 55 minutes
Anticipated Discharge: > 48 hours
Subjective/Interval History
-
Date of Service: February 12, 2025
She reports muscles aches
she reports left hand weakness
Denies headache or confusion
Objective Data
-
Labs:
Laboratory Results
02/11/25 02/12/25
22:12 03:28
WBC 7.3
Hgb 10.8 L
Hct 33.1 L
Plt Count 189
PT 12.6 13.1
INR 0.91 0.96
APTT 20.3 L 23.1 L
Sodium 138
Potassium 4.1
Chloride 109 H
Carbon Dioxide 27
BUN 16
Creatinine 0.6
Glucose 111 H
Calcium 8.5
Vital Signs:
Vital Signs
Temp Pulse Resp BP Pulse Ox
97.9 F 63 14 130/74 97
02/12/25 08:10 02/12/25 09:22 02/12/25 09:06 02/12/25 09:22 02/12/25 09:00
I&O
02/11/25 02/12/25 02/13/25
06:59 06:59 06:59
Intake Total 1979 100 / 100
Output Total
Balance 1055 / 1155 100 / 100
--- NOTE | 2025-02-12 09:45 | PTCARENOTE ---
Rec'd care of patient at 0700. Patient alert and oriented. Confused/forgetful at times. PERRLA. NIH-6. Neglecting left side. Left visual field cut. MAEx4. Weak in LUE. Reduced sensation in LUE, LLE. Hx neuropathy in b/l feet. NSR on tele. No edema.
Palpable pulses. Lung sounds cta on RA. +BS. Cleared by speech for regular diet. Voiding via bedpan. Bruising scattered throughout body; outlined to track spread. IVFs infusing through peripheral INT. VSS. Echo completed. Bed alarm on and safe
environment maintained. See worklist for full assessment and care.
--- NOTE | 2025-02-12 11:35 | CON.INTV ---
Consultation
Consultation Request
Date/Time Consultation Requested: 02/12/2025
Date/Time Consultation Performed: 02/12/2025
Requesting Provider: Dr. Lara
Performing Provider: Dr. Moose Us
Reason for Consultation: Acute CVA
Medical History
-
History of Present Illness:
89-year-old woman with past medical history significant for asthma, orthostatic hypotension, peripheral neuropathy, mild cognitive impairment who came to the hospital complaining of left-sided weakness. Patient is unable to provide detailed
history. There is report of patient passing out and falling. Possibly having some mild head trauma.
She was found at [facility] in the floor of her apartment noted to have left-sided weakness. She was brought into the emergency room via EMS.
She was found to have a field cut, left facial droop and left-sided weakness. She was deemed candidate for tenecteplase.
Transferred to the critical care unit for further monitoring.
After tenecteplase patient started complaining of increased posterior head pain and she was found to have an hematoma that expanded overnight.
This morning denies nausea or vomiting
Continues to have left-sided weakness
Continues to have a feel visual cut.
Denies nausea or vomiting.
Past Medical History
Past Medical History: Other (See assessment and plan)
Social History
Tobacco: Non-smoker
Alcohol: None
Living: Detention ([facility])
Employment: Retired
Family History
Family History: Reviewed & Not Pertinent
Allergies / Home Medications
Allergies
Allergy/AdvReac Type Severity Reaction Status Date / Time
chocolate flavor Allergy respiratory Verified 02/11/25 13:57
symptoms
[place] And Derivatives Allergy eczema Verified 02/11/25 13:57
latex Allergy unsure, Verified 02/11/25 13:57
tested high
dairy products Allergy respiratory, Uncoded 02/11/25 13:57
mild
environmental allergies Allergy respiratory Uncoded 02/11/25 13:57
symptoms
melons Allergy respiratory Uncoded 02/11/25 13:57
symptoms
opiates, codeine + morphine Allergy violently Uncoded 02/11/25 13:57
ill
Home Medications
�Medication �Instructions �Recorded �Confirmed �Last Taken �Type
hydroxychloroquine 200 mg tablet 200 mg PO DAILY RHEUMATOID 11/15/16 02/11/25 Unknown History
ARTHRITIS
lorazepam 0.5 mg tablet 0.5 mg PO BID Mental Health/Anxiety 11/15/16 02/11/25 Unknown History
calcium 315 mg (as 1 tab PO DAILY Supplement 02/11/25 02/11/25 Unknown History
citrate)-vitamin D3 5 mcg (200
unit) tablet (Calcium Citrate + D)
carboxymethylcellulose sodium 1 % 1 drp ophthalmic (eye) QID Eye 02/11/25 02/11/25 Unknown History
eye drops (Artificial Tears Condition
(carboxymethylcellulose))
gabapentin 300 mg capsule 300 mg PO HS Pain 02/11/25 02/11/25 Unknown History
melatonin 5 mg tablet 5 mg PO HS sleep 02/11/25 02/11/25 Unknown History
mirtazapine 15 mg tablet 7.5 mg PO HS Mental Health/Anxiety 02/11/25 02/11/25 Unknown History
mometasone 220 mcg/actuation(30 1 inh inhalation HS Lung/Breathing 02/11/25 02/11/25 Unknown History
doses) breath activated powder Issues
inhaler (Asmanex Twisthaler)
multivitamin 1 tab PO DAILY Supplement 02/11/25 02/11/25 Unknown History
polyethylene glycol 3350 17 17 g PO BID Constipation 02/11/25 02/11/25 Unknown History
gram/dose oral powder (Miralax)
propranolol 10 mg tablet 10 mg PO BID TACHYCARDIA 02/11/25 02/11/25 Unknown History
sertraline 25 mg tablet 25 mg PO DAILY Mental 02/11/25 02/11/25 Unknown History
Health/Anxiety
Review of Systems
-
Unable to Obtain full review of systems at this time due to: Other (Poor historian)
History Source: Patient
All other systems: Negative unless noted
Vitals / Labs / Diagnostic Testing
Vital Signs
Temp Pulse Resp BP Pulse Ox
97.9 F 55 16 114/56 96
02/12/25 11:26 02/12/25 11:00 02/12/25 11:00 02/12/25 11:00 02/12/25 11:00
Lab Data
02/12/25 03:28
02/12/25 03:28
Laboratory Results
02/11/25 02/11/25 02/12/25
19:40 22:12 03:28
PT Cancelled 12.6 13.1
INR Cancelled 0.91 0.96
APTT Cancelled 20.3 L 23.1 L
Diagnostic Testing:
Physical Exam
-
HEENT: Normocephalic
Cardiovascular: S1/S2
Respiratory: Non-Labored Respirations
GI: Soft and Non Distended
Neurology: Awake, Other (Left hemiparesis) and Other (Facial drooping, )
Skin: Warm
General: Comfortable
Assessment
-
89-year-old woman who is a residence at [facility], past medical history noted. Was brought into the hospital for evaluation of left-sided weakness. Found to have right parietal stroke she was deemed candidate for tenecteplase. She was
transferred to the critical care unit for further monitoring.
Right parietal [id number] weakness-status post tenecteplase 02/11/2025 at 15:19
CTA head/neck imgs rev'd, no LVO. report showing right ICA focal calcification, 41% stenosis, streak artifact
CT perfusion showing right parietal stroke, 3cc core, 28 cc penumbra
Scalp hematoma
Conditions present prior admission:
Asthma/bronchiectasis
Orthostatic hypotension
Peripheral neuropathy
Rheumatoid arthritis
Mild cognitive impairment
Anxiety/depression
Insomnia
Chronic constipation
Assessment and plan:
-Telemetry monitoring.
-Hourly neurovascular checks
-Stable physical examination from last night-continues to have vision difficulties as well as left hemiparesis.
-
Monitor for bleeding
Scalp hematoma noted-continue to monitor for expansion.
So far no indication for reversal.
-
-Avoid antihypertensive medications unless MAP is persistently higher than 130
-Treat persistently elevated MAP>180 with IV Labetalol.
-Advance diet as tolerated-speech evaluation.
-Maintain elevation of HOB 30-45 degrees.
-Utilize a pneumatic compression device for DVT prophylaxis.
-
-No antiplatelet agents nor anticoagulants, including heparin, low molecular weight heparin, heparinoids, warfarin, ASA and other antiplatelet agents, and NSAIDs;
-For any worsening of neurologic condition:STAT head CT
-MRI brain wo eloisa-later today
-
Echocardiogram 02/12/2025: Reviewed showed normal LVEF. No significant valvular disease. No evidence of shunting.
-
Carotid ultrasound to evaluate carotid artery stenosis-pending
-
Physical therapy/Occupational Therapy per protocol.
-
Maintain ICU level of care until MRI is done later today. If MRI showed no evidence for acute abnormalities then transferred to telemetry.
If transferred to telemetry critical care team will sign off
--- NOTE | 2025-02-12 12:50 | PTCARENOTE ---
No changes in assessment. Patient resting comfortably. VSS. MRI of brain later today.
--- NOTE | 2025-02-12 13:21 | CM ---
Initial assessment completed with patient who lives alone in a 2nd floor apartment at [facility] with elevator access. 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
intermittent use of a SPC or rollator. She also has a RW in the home. She does not drive. No in-home services. Does have HC-POA. PCP is Dr. Mary Calvin . Pharmacy is [facility] at [facility]. Discharge POC: Awaiting therapy evaluation and
recommendation. If SNF is the rec, patient prefers [facility].
--- NOTE | 2025-02-12 14:47 | PTCARENOTE ---
Bruising behind left ear/neck increased from prior assessments; outside lines previously marked. Installer Metal Flooring notified.
--- NOTE | 2025-02-12 16:56 | PTCARENOTE ---
MRI of brain complete. No changes in assessment. VSS. Patient assisted in ordering dinner.
[2025-02-12] MEDS: LIPITOR 40 MG PO (17:07)
--- NOTE | 2025-02-12 17:10 | W.PN.UPDATE ---
Update Note
Progress Note Update
Scalp hematoma relatively stable.
Neurologic examination stable as well.
MRI noted:Numerous foci of restricted diffusion in the right cerebral hemisphere compatible with acute infarcts. Greatest involvement of the right frontal lobe and right parietal lobe, to a lesser degree the right occipital lobe and right temporal
lobe. Small focus of susceptibility associated with one of the larger infarcts in the right parietal lobe (series 401, image 19) suggesting petechial blood products.
Possibly embolic.
Continue telemetry monitoring
Continue to monitor expansion of hematoma
Fall precautions
Will transfer to telemetry
Critical care team will sign off
--- NOTE | 2025-02-12 17:14 | PTCARENOTE ---
Patient downgraded to tele level.
[2025-02-12] MEDS: ASPIR LOW (ENTERIC COATED) 81 MG PO (18:28)
[2025-02-12] MEDS: FLOVENT 44 MCG INHALER 1 PUFF INH (19:34)
[2025-02-12] MEDS: NEURONTIN 300 MG PO ×2 (20:52)
[2025-02-12] MEDS: REMERON 7.5 MG PO (20:52)
[2025-02-12] MEDS: MELATONIN 5 MG PO (20:53)
[2025-02-13] VITALS (10 sets, daily range): BP systolic 123–156; BP diastolic 41–71; PULSE 67; O2SAT 97; BMI 20.6
[2025-02-13 05:23] LABS: Hematocrit 34.8 % (37.0-47.0); Hemoglobin 11.4 g/dL (12.0-16.0); Mean Corp Hgb Conc. 32.8 g/dL (33.0-37.0); Mean Corpuscular Volume 92.1 fL (81.0-99.0); Platelet Count 224 10^3/uL (130-400); Red Cell Dist. Width 13.2 % (11.5-14.5)
[2025-02-13 05:56] LABS: Blood Urea Nitrogen 11 mg/dl (7-17); Calcium 8.9 mg/dl (8.4-10.2); Carbon Dioxide 26 mmol/L (22-30); Chloride 111 mmol/L (98-107); Estimated Creatinine Clearance 52 ml/min; Glucose 90 mg/dl (70-99); Potassium 4.0 mmol/L (3.5-5.1); Sodium 139 mmol/L (135-145); eGFR > 60.00
[2025-02-13] MEDS: FLOVENT 44 MCG INHALER INH ×2 (07:27→19:27)
--- NOTE | 2025-02-13 07:49 | W.PN.NEURO.1 ---
Today's Communication / Plan
-
start aspirin 81 mg not clopidogrel due to relatively large size of cumulative lesions
LDL 77 with goal <70, start atorvastatin 40 mg nightly
goal blood glucose levels for patient would be less than 180 mg/dL
no driving for patient
Speech, PT, OT evaluations needed
Neuro Assessment/Plan
Assessment
Patient is an 89 y/o female past medical history of asthma, orthostatic hypotension, peripheral neuropathy and mild cognitive impairment who presented to [facility] on 02/11/2025 with left sided weakness now s/p TNK.
CTA head/neck imgs rev'd, no LVO. report showing right ICA focal calcification, 41% stenosis, streak artifact
CT perfusion showing right parietal stroke, 3cc core, 28 cc penumbra
Brain MRI:
Carotid US: unremarkable
Labs: Cholesterol 154, LDL 77
patient s/p TNK on 02/11/2025 at 1519
Impression: Abrupt onset of left sided weakness, left visual field cut and left facial weakness in the setting of an acute ischemic stroke
Plan
start aspirin 81 mg not clopidogrel due to relatively large size of cumulative lesions
LDL 77 with goal <70, start atorvastatin 40 mg nightly
goal blood glucose levels for patient would be less than 180 mg/dL
no driving for patient
Speech, PT, OT evaluations needed
Will follow as needed
Subjective/Objective
Subjective Data
Date of Service: February 13, 2025
Objective Data
Vital Signs
Temp Pulse Resp BP Pulse Ox
37.2 C 66 13 143/71 97
02/13/25 04:55 02/13/25 06:00 02/13/25 06:00 02/13/25 05:13 02/13/25 05:13
Lab Results
02/13/25 05:11
02/13/25 05:11
PT 13.1 Sec (11.4-14.6) 02/12/25 03:28
INR 0.96 02/12/25 03:28
APTT 23.1 Sec (23.4-35.0) L 02/12/25 03:28
Sodium 139 mmol/L (135-145) 02/13/25 05:11
Potassium 4.0 mmol/L (3.5-5.1) 02/13/25 05:11
BUN 11 mg/dl (7-17) 02/13/25 05:11
Glucose 90 mg/dl (70-99) 02/13/25 05:11
Calcium 8.9 mg/dl (8.4-10.2) 02/13/25 05:11
Phosphorus 4.0 mg/dl (2.5-4.5) 02/12/25 03:28
LDL Cholesterol, Calc 77 mg/dl 02/12/25 03:28
Patient Allergies
chocolate flavor Allergy (Verified 02/11/25 13:57)
respiratory symptoms
[place] And Derivatives Allergy (Verified 02/11/25 13:57)
eczema
latex Allergy (Verified 02/11/25 13:57)
unsure, tested high
environmental allergies Allergy (Uncoded 02/11/25 13:57)
respiratory symptoms
melons Allergy (Uncoded 02/11/25 13:57)
respiratory symptoms
opiates, codeine + morphine Allergy (Uncoded 02/11/25 13:57)
violently ill
Past History
Past History
ED Past Medical History: Asthma and Other (Orthostasis)
ED Past Surgical History: None
Social History
Tobacco: Non-smoker
Alcohol: None
Drug: None
Personal:
Living: with family
Employment: Retired
Medications
-
Medications:
Generic Name Dose Route Start Last Admin
Trade Name Freq PRN Reason Stop Dose Admin
Acetaminophen 650 mg 02/11/25 18:20 02/12/25 20:56
Acetaminophen 325 Mg Tablet PO 03/11/25 18:19 650 mg
Q4HPRN PRN Administration
FERNANDEZ, mild pain, or temp >100.4F
Aspirin 81 mg 02/12/25 18:00 02/12/25 18:28
Aspirin 81 Mg (Enteric Coated) Tablet PO 03/12/25 17:59 81 mg
DAILY DELIO Administration
Atorvastatin Calcium 40 mg 02/12/25 18:00 02/12/25 17:07
Atorvastatin (Lipitor) 40 Mg Tablet PO 03/12/25 17:59 40 mg
QPM DELIO Administration
Fluticasone Propionate 1 puff 02/11/25 22:00 02/13/25 07:27
Fluticasone 44 Mcg Inhaler INH 03/11/25 21:59 Not Given
R BID DELIO
Gabapentin 300 mg 02/11/25 22:00 02/12/25 20:52
Gabapentin 300 Mg Capsule PO 03/11/25 21:59 300 mg
HS DELIO Administration
Hydralazine HCl 5 mg 02/11/25 18:20
Hydralazine 20 Mg/Ml Vial IV 03/11/25 18:19
Q4HPRN PRN
BP > 180/105 mmHg
Hydroxychloroquine Sulfate 200 mg 02/12/25 08:00 02/12/25 09:03
Hydroxychloroquine 200 Mg Tablet PO 03/12/25 07:59 200 mg
DAILY DELIO Administration
Lorazepam 0.5 mg 02/11/25 20:00 02/12/25 20:52
Lorazepam 0.5 Mg Tablet PO 03/11/25 19:59 0.5 mg
BID DELIO Administration
Melatonin 5 mg 02/11/25 22:00 02/12/25 20:53
Melatonin 5 Mg Tablet PO 03/11/25 21:59 5 mg
HS DELIO Administration
Mirtazapine 7.5 mg 02/11/25 22:00 02/12/25 20:52
Mirtazapine 15 Mg Regular Release Tablet PO 03/11/25 21:59 7.5 mg
HS DELIO Administration
Polyethylene Glycol 17 grams 02/11/25 20:00 02/12/25 20:52
Polyethylene Glycol Powder 17 Grams Packet PO 03/11/25 19:59 17 grams
BID DELIO Administration
Propranolol HCl 10 mg 02/11/25 20:00 02/12/25 20:52
Propranolol 10 Mg Regular Release Tablet PO 03/11/25 19:59 10 mg
BID DELIO Administration
Sertraline HCl 25 mg 02/12/25 08:00 02/12/25 09:03
Sertraline 25 Mg Tablet PO 03/12/25 07:59 25 mg
DAILY DELIO Administration
Sodium Chloride 0 flush 02/11/25 21:00
Sodium Chloride 0.9% (Flush) Syringe IV 03/11/25 20:59
PER PROTOCOL DELIO
[2025-02-13] MEDS: ASPIR LOW (ENTERIC COATED) 81 MG PO (08:39)
[2025-02-13] MEDS: ZOLOFT 25 MG PO (08:39)
[2025-02-13] MEDS: INDERAL 10 MG PO ×2 (08:39→20:13)
[2025-02-13] MEDS: PLAQUENIL 200 MG PO (08:39)
[2025-02-13] MEDS: MIRALAX 17 GRAMS PO ×2 (08:40→20:12)
[2025-02-13] MEDS: ATIVAN 0.5 MG PO ×2 (08:40→20:12)
--- NOTE | 2025-02-13 08:58 | PTCARENOTE ---
assumed care of pt. NIH 7. confused to location, visual field cut, LUE min against gravity, ataxia, slight sensation loss L. Assessment as noted. Bed alarm on.
--- NOTE | 2025-02-13 09:01 | W.PN.HOSP.TC ---
Addendum entered and electronically signed by Imelda Moody MD 02/13/25 13:55:
Addendum
Updated daughter and son Dr. Starr. Requested acute rehab if possible. Discussed with Dr. Hendrix, appreciate input.
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 Last seen [facility] in 2022. Will consult cardiology.
Original Note:
Today's Communication/Plan
-
Await PT evaluation
WIlld/w neurology if need to add Plavix.
Assessment / Plan
Assessment / Plan
Physical Exam
General: Comfortable and Conversant
HEENT: Anicteric and Moist mucous membranes
Respiratory: Clear and Non Labored Respirations
Cardiac: S1/S2 and Regular Rhythm
GI: Soft and Non Tender
Rectal: Deferred by Provider
Musculoskeletal: No Clubbing, No Cyanosis and No Edema
Skin: Warm and Dry
Neuro: Awake, Alert, No Motor Deficits (During my evaluation) and Facial Droop (Left facial )
Psych: Calm
Acute Right Parietal Stroke
MRI showed: Numerous foci of restricted diffusion in the right cerebral hemisphere compatible with acute infarcts. Greatest involvement of the right frontal lobe and right parietal lobe, to a lesser degree the right occipital lobe and right temporal
lobe. Small focus of susceptibility associated with one of the larger infarcts in the right parietal lobe (series 401, image 19) suggesting petechial blood products.
Possibly embolic.
Continue telemetry monitoring
Continue to monitor expansion of hematoma
Fall precautions
-Patient evaluated by Neurology and given Tenecteplase 02/11
-atorvastatin 40 mg due to LDL greater than 70 although limited probable help in a person of this advanced age
- HGB A1C 5.7 . LDL 77
- Carotid US as Neck CT indicates focal calcification of right internal carotid artery but limited evaluation due to streak artifact. US showed Negative for flow-limiting carotid stenosis. By velocity criteria, any internal carotid artery stenosis
present is in the range of 0-49%.
Await PT evaluation
Appreciate neurology & ICU doctors help
Asthma / Bronchiectasis, no acute exacerbation
-Continue Asmanex
Peripheral Neuropathy
-Continue gabapentin
Mild Cognitive Impairment
-Monitor mental status
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
-Continue lorazepam
-Continue sertraline
-Continue mirtazapine and melatonin
Rheumatoid Arthritis
-Continue hydroxychloroquine
DVT proph: SCDs
Code Status: DNR per Transfer Paperwork and confirmed with daughter Omid via phone at time of admission
Total time spent to see the patient, examine the patient, review data and lab results, discuss treatment plan with patient, neurologist, nursing staff around 55 minutes
Anticipated Discharge: 24 - 48 hours
Subjective/Interval History
-
Date of Service: February 13, 2025
No chest pain
No sob
No headache
Objective Data
-
Labs:
Laboratory Results
02/13/25
05:11
WBC 6.6
Hgb 11.4 L
Hct 34.8 L
Plt Count 224
Sodium 139
Potassium 4.0
Chloride 111 H
Carbon Dioxide 26
BUN 11
Creatinine 0.6
Glucose 90
Calcium 8.9
Vital Signs:
Vital Signs
Temp Pulse Resp BP Pulse Ox
98.3 F 73 15 156/67 96
02/13/25 08:17 02/13/25 08:04 02/13/25 08:04 02/13/25 08:04 02/13/25 08:00
I&O
02/12/25 02/13/25 02/14/25
06:59 06:59 06:59
Intake Total 1979 1520 / 1520
Output Total 925 / 925 500 / 500
Balance 1055 / 1155 1020 / 1020
--- NOTE | 2025-02-13 11:07 | CON.MD ---
Documented by User: Lindsey Esparza MD, Resident 02/13/25 18:00
Consultation - Medical
-
Referring Provider:��Imelda Moody
Chief Complaint:��Left-sided weakness
�
History of Present Illness:��
Patient is an 89 y/o female past medical history of asthma, orthostatic hypotension, peripheral neuropathy and mild cognitive impairment who presents with left sided weakness. Patient is a limited historian. Patient says she did get dizzy and
passed out/fell. Some notes indicate she did hit her head. She was found on the floor of her apartment at [facility] and was noted to have left sided weakness. EMS brought patient to the emergency department evaluation and a stroke alert was
called. Patient was evaluated by Neurology who noted left visual field cut, left facial droop and left sided weakness. Decision was made for patient to receive Tenecteplase due significant deficits. Nursing reports that left sided weakness is
improving following Tenecteplase. However patient then began complaining of increased posterior head/neck pain.
Past Medical History:�Asthma, orthostatic hypotension, peripheral neuropathy, mild cognitive impairment
Procedure History:�Right shoulder surgery for rotator cuff tear
Family History:�Arthritis in mother
�
Social History:�
Functional Level Premorbidly: Independent with all activities�
Functional Level Currently:��
OT: Significant assistance for lower body ADLs, moderate assistance for toileting, transfers and functional mobility in room and bathroom with rolling walker; minimal assistance for balance during standing, grooming at sink. Will benefit from
continued OT and skilled rehab
PT: Mod assist for mobility and assist to navigate due to field cut. Will benefit from skilled rehab
�
Speech Therapy Evaluation:
Pt with chronic risk factor of dysphagia including asthma/COPD, acutely compounded by acute CVA. Despite this, oropharyngeal swallow appears functional at bedside. No overt s/sx of aspiration across session, CXR without pneumonia, WBC WNL, and pt
without dysphagia hx.
Recommend:
1. Continue regular solids and thin liquids
2. Medications as tolerated
3. General aspiration precautions
4. Partial assistance with PO given L sided weakness
5. NET ARCHITECT to follow to monitor tolerance of diet and administer cognitive assessment as appropriate.
Tobacco: Denies�
Alcohol: Denies�
Drug use: Denies�
�
Lives with:�Alone
24-hour assistance available:�[facility]
Number of floors:�1
Driving:�No
Occupation:�Retired
��
�
Allergies:��
�
Allergy/AdvReac Type Severity Reaction Status Date / Time
chocolate flavor Allergy respiratory Verified 02/11/25 13:57
symptoms
Casey And Derivatives Allergy eczema Verified 02/11/25 13:57
latex Allergy unsure, Verified 02/11/25 13:57
tested high
environmental allergies Allergy respiratory Uncoded 02/11/25 13:57
symptoms
melons Allergy respiratory Uncoded 02/11/25 13:57
symptoms
opiates, codeine + morphine Allergy violently Uncoded 02/11/25 13:57
ill
Review of Systems:�
Constitutional: (x) Normal _�
Eye: Unable to see objects in left side of visual field
Ear/Nose/Throat: (x) Normal _�
Respiratory: (x) Normal _�
Cardiovascular: (x) Normal _�
Gastrointestinal: (x) Normal _�
Genitourinary: (x) Normal _�
Musculoskeletal: Right arm weakness. Pain at posterior neck/skull base. Pain at right temporal bone, where she hit her head
Integumentary: (x) Normal _�
Neurologic: (x) Normal _�
Psychiatric: (x) Normal _�
Endocrine: (x) Normal _�
Hematologic/Lymphatic: (x) Normal _�
Allergic/Immunologic: (x) Normal _�
�
Medications:�
�
Generic Name Dose Route Start Last Admin
Trade Name Freq PRN Reason Stop Dose Admin
Acetaminophen 650 mg 02/11/25 18:20 02/12/25 20:56
Acetaminophen 325 Mg Tablet PO 03/11/25 18:19 650 mg
Q4HPRN PRN Administration
FERNANDEZ, mild pain, or temp >100.4F
Aspirin 81 mg 02/12/25 18:00 02/13/25 08:39
Aspirin 81 Mg (Enteric Coated) Tablet PO 03/12/25 17:59 81 mg
DAILY DELIO Administration
Atorvastatin Calcium 40 mg 02/12/25 18:00 02/12/25 17:07
Atorvastatin (Lipitor) 40 Mg Tablet PO 03/12/25 17:59 40 mg
QPM DELIO Administration
Fluticasone Propionate 1 puff 02/11/25 22:00 02/13/25 07:27
Fluticasone 44 Mcg Inhaler INH 03/11/25 21:59 Not Given
R BID DELIO
Gabapentin 300 mg 02/11/25 22:00 02/12/25 20:52
Gabapentin 300 Mg Capsule PO 03/11/25 21:59 300 mg
HS DELIO Administration
Hydralazine HCl 5 mg 02/11/25 18:20
Hydralazine 20 Mg/Ml Vial IV 03/11/25 18:19
Q4HPRN PRN
BP > 180/105 mmHg
Hydroxychloroquine Sulfate 200 mg 02/12/25 08:00 02/13/25 08:39
Hydroxychloroquine 200 Mg Tablet PO 03/12/25 07:59 200 mg
DAILY DELIO Administration
Lorazepam 0.5 mg 02/11/25 20:00 02/13/25 08:40
Lorazepam 0.5 Mg Tablet PO 03/11/25 19:59 0.5 mg
BID DELIO Administration
Melatonin 5 mg 02/11/25 22:00 02/12/25 20:53
Melatonin 5 Mg Tablet PO 03/11/25 21:59 5 mg
HS DELIO Administration
Mirtazapine 7.5 mg 02/11/25 22:00 02/12/25 20:52
Mirtazapine 15 Mg Regular Release Tablet PO 03/11/25 21:59 7.5 mg
HS DELIO Administration
Polyethylene Glycol 17 grams 02/11/25 20:00 02/13/25 08:40
Polyethylene Glycol Powder 17 Grams Packet PO 03/11/25 19:59 17 grams
BID DELIO Administration
Propranolol HCl 10 mg 02/11/25 20:00 02/13/25 08:39
Propranolol 10 Mg Regular Release Tablet PO 03/11/25 19:59 10 mg
BID DELIO Administration
Sertraline HCl 25 mg 02/12/25 08:00 02/13/25 08:39
Sertraline 25 Mg Tablet PO 03/12/25 07:59 25 mg
DAILY DELIO Administration
Sodium Chloride 0 flush 02/11/25 21:00
Sodium Chloride 0.9% (Flush) Syringe IV 03/11/25 20:59
PER PROTOCOL DELIO
Vitals:�
�
Temp Pulse Resp BP Pulse Ox
98.3 F 65 16 156/67 96
02/13/25 08:17 02/13/25 10:00 02/13/25 10:00 02/13/25 08:04 02/13/25 08:00
Height 5 ft 2 in
Actual Weight 51 kg
Body Mass Index (BMI) 20.6
Physical Exam:�
General Appearance/Observation: Well-developed, well-nourished individual in no apparent distress.�
Pain/Comfort Assessment: Posterior head and right temporal area
Mood/Affect: Appropriate�
�
Integumentary/Operative Site:�
�� Pressure Ulcer Evaluation: absent over heels.�
�� Other Type of Wound: absent
Ecchymosis under hair at her right temporal bone, where patient says she hit her head
Ecchymosis at nape of neck bilaterally, extending from right superior side. Patient denies hitting nape of neck
Large ecchymosis covering left hand. Patient denies remembering hitting that hand
�
Eyes: Conjunctiva/Lids: normal Pupils: pupils equal round and reactive to light and Accommodation�
Ears/Nose/Throat: oral mucosa moist,� throat clear. Lips/Teeth/Gums: normal�
Neck: No muscle spasm or tenderness�
Cardiovascular: Heart: regular, no murmur�
Pulses: Radial 2+ bilaterally�
Respiratory: Respiratory Effort/Chest Expansion: normal. Auscultation: Clear to auscultation bilaterally�
Gastrointestinal: abdomen not tender, no distension, normal abdominal bowel sounds�
Genitourinary: No Roper�
Rectal Exam: Deferred�
Extremities: Edema: None Cyanosis: None Trophic changes: None�
�
�
Neurology Exam:�
Orientation: Alert, Oriented to self, Time, Place�
Higher cortical function�
Comprehension: Intact�
�
Cranial Nerves:�
�� CNII: Pupillary light reflex: Intact��� Visual Field: Intact�
�� CN III, IV, : Extraocular muscles: Intact��
�� CN V: Facial Sensation at Forehead: Intact, Maxilla: Intact, Mandible: Intact �
�� CN VII: Facial movement: Symmetric�
�� CN VIII: Hearing: Normal�
�� CN IX/X: Speech & swallow: Normal, Position of Uvula: Midline�
�� CN XI: Shoulder shrug: Symmetric�
�� CN XII: Tongue protrusion: Midline�
�
Sensory:�
�� Light touch: Left hand and foot have extinction to bilateral simultaneous stimulation�
�
Reflexes:�
�� Biceps: 2+ bilaterally�
�� Brachioradialis: 2+ bilaterally�
�� Triceps: 2+ bilaterally�
�� Patellar: 2+ bilaterally�
�� Achilles: 2+ bilaterally�
�� Babinski: Down going bilaterally�
�� Clonus: None�
�� Mack: Negative bilaterally�
Cerebellar: Dysmetria/Ataxia: left dysmetria�
�
Musculoskeletal:�With left upper extremity, able to hold remote, lift remote, pronate, supinate, and greatest weakness is shoulder abduction
�
Motor: (Manual muscle scale 0-5)�
Muscle� SA� EF� WE� EE� FF� FA� HF� KE� DF� EHL� PF�
Right��� 4� 4� 5� 4� 4� 4� 4� 5� 5� 5� 5�
Left� 2� 4� 4� 3+� 4� 4� 3� 4� 5� 5� 5�
�
Tone: Normal in all extremities�
Range of Motion: Passively within normal limits in all extremities�
�
Lab Results�
��
02/13/25 05:11
02/13/25 05:11
WBC 6.6 10^3/uL (4.8-10.8) 02/13/25 05:11
Hgb 11.4 g/dL (12.0-16.0) L 02/13/25 05:11
Hct 34.8 % (37.0-47.0) L 02/13/25 05:11
MCV 92.1 fL (81.0-99.0) 02/13/25 05:11
Plt Count 224 10^3/uL (130-400) 02/13/25 05:11
PT 13.1 Sec (11.4-14.6) 02/12/25 03:28
INR 0.96 02/12/25 03:28
Sodium 139 mmol/L (135-145) 02/13/25 05:11
Potassium 4.0 mmol/L (3.5-5.1) 02/13/25 05:11
Chloride 111 mmol/L (98-107) H 02/13/25 05:11
Carbon Dioxide 26 mmol/L (22-30) 02/13/25 05:11
BUN 11 mg/dl (7-17) 02/13/25 05:11
Creatinine 0.6 mg/dL (0.6-1.0) 02/13/25 05:11
eGFR > 60.00 02/13/25 05:11
Glucose 90 mg/dl (70-99) 02/13/25 05:11
Hemoglobin A1c 5.7 % (4.0-5.6) H 02/12/25 03:28
Calcium 8.9 mg/dl (8.4-10.2) 02/13/25 05:11
Phosphorus 4.0 mg/dl (2.5-4.5) 02/12/25 03:28
Magnesium 2.0 mg/dl (1.6-2.3) 02/12/25 03:28
Total Bilirubin 0.6 mg/dl (0.2-1.3) 02/11/25 14:06
AST 21 U/L (14-36) 02/11/25 14:06
ALT 16 U/L (0-35) 02/11/25 14:06
Alkaline Phosphatase 62 U/L (38-126) 02/11/25 14:06
Total Protein 6.3 g/dl (6.3-8.2) 02/11/25 14:06
Albumin 3.8 g/dl (3.5-5.0) 02/11/25 14:06
Diagnostic Results: as per HPI�
�
Brain MRI 02/12/25
Large number of acute infarcts in the right cerebral hemisphere. Small focus of presumed petechial hemorrhage associated with one of the infarcts in the right parietal lobe.
Carotid U/S 02/12/25
Negative for flow-limiting carotid stenosis. By velocity criteria, any internal carotid artery stenosis present is in the range of 0-49%.
Head CT 02/11/25 5:16 pm
There is a new central and left paracentral posterior scalp hematoma. No evidence for calvarial fracture.
No evidence for acute intracranial hemorrhage.
Cervical spine CT 02/11/25
No evidence of acute fracture or dislocation.
Head neck CTA 02/11/25
Focal calcification involving the proximal right internal carotid artery. There is streak artifact involving the proximal right ICA, limiting evaluation. Measured diameter reduction of 41%. Consider further evaluation with cerebrovascular ultrasound.
Mild calcification at the junction of the left carotid bulb and proximal left ICA with less than 25% diameter reduction.
No evidence for intracranial large vessel occlusion or high-grade stenosis
No significant narrowing of the vertebral or basilar arteries.
See above narrative for additional findings.
Percent stenosis is calculated using NASCET criteria.
Head CT 02/11/25 2:44 pm
No evidence of acute intracranial abnormality
Assessment�
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 Pending PT/OT evaluation 24 hours after
TNK.
Plan��
PM&R PT/OT to increase independence with ADLs, improve balance, coordination, endurance, strength, mobility, community reintegration, decreased burden of care on others and family education.�
�
CVA: Secondary prophylaxis with aspirin 81 mg po daily, atorvastatin 40 mg, and blood pressure control (SBP less than 180 and diastolic less than 100 to participate with therapy for ischemic stroke). Continue to monitor neurologic status.��
Left/right nondominant hemiparesis: High risk for falls and sliding out of chair/bed. Safety reinforced.�
- Avoid using affected arm to help lift or pull patient as this will cause trauma to the shoulder.�
�
Falls: Likely multifactorial�
- Peripheral polyneuropathy: Further evaluate with possible EMG/nerve conduction study and lab testing with neurology as outpatient. Possible ulnar neuropathy versus radiculopathy with decreased sensation in the fifth digit.� TSH normal, B12 low
normal added B12 and multivitamin.�
- Vitamin D deficiency: weekly replacement Vitamin D2.�
- Check orthostatics.�
��
HTN: continue hydralazine as needed, monitor closely�
Anemia: Likely multifactorial.� Continue to monitor.��
�
Psych: Psychology consult.� Monitor mood, adjust medications as needed.��Sertraline 25 mg p.o. daily
Skin: monitor for pressure sores/rashes/lesions/ecchymoses.�
Pain: acetaminophen or oxycodone as needed.�
Bowel: Colace and Senna, PRN bisacodyl.�
Bladder: Time void, PVRs, PRN straight cath.�
GI Prophylaxis: Pantoprazole�
DVT Prophylaxis: Aspirin 81 mg p.o. daily
Pulmonary: Incentive spirometry�
Safety: Continue to reinforce assistance with all transfers.�
Code Status:� DNR�
Dispo (date/plan/equipment needs): Acute rehab.� Social history reviewed.�
�
Functional and Medical Goals: Modified Independent with ADL�s, ambulation, transfers�
�
SUMMARY�
Summary of recommendations:�
- Discharge Destination: Acute rehab
Continue aspirin 81 mg p.o. daily
Given patient's persistent left hemiplegia, dysmetria, and extinction to bilateral simultaneous stimulation, acute rehab is recommended, to maximize recovery.
�
Will continue to follow patient.�
�
Thank you for allowing me to care for your patient. Please contact me with any questions or concerns.�
�
This note was dictated using a voice recognition system. Please excuse any typographical errors from room worker. If you believe there are any discrepancies, please notify our office.�
�
Consultation
-
Date/Time Consultation Requested: 02/11/25
Date/Time Consultation Performed: 02/13/25
Requesting Provider: Imelda Moody
Performing Provider: Lindsey Jenkins
Reason for Consultation: Stroke

Documented by User: Leonel Calderón MD 02/14/25 00:27
Consultation - Medical
-
Referring Provider:��Imelda Moody
Chief Complaint:��Left-sided weakness
�
History of Present Illness:��
Patient is an 89 y/o right-handed female past medical history of asthma, orthostatic hypotension, peripheral neuropathy and mild cognitive impairment who presents with left sided weakness. Patient is a limited historian. Patient says she did get
dizzy and passed out/fell. Some notes indicate she did hit her head. She was found on the floor of her apartment at [facility] and was noted to have left sided weakness. EMS brought patient to the emergency department evaluation and a stroke alert
was called. Patient was evaluated by Neurology who noted left visual field cut, left facial droop and left sided weakness. Decision was made for patient to receive Tenecteplase due 2 significant deficits. Nursing reports that left sided weakness is
improving following Tenecteplase. However patient then began complaining of increased posterior head/neck pain. Seen by cardiology with plan for cardiac care nurse for arrhythmias. MRI noting: Numerous foci of restricted diffusion in the right
cerebral hemisphere compatible with acute infarcts. Greatest involvement of the right frontal lobe and right parietal lobe, to a lesser degree the right occipital lobe and right temporal lobe. Small focus of susceptibility associated with one of the
larger infarcts in the right parietal lobe (series 401, image 19) suggesting petechial blood products. Patient feels she is a little bit better with the left hand but still with weakness. Neurology recommending aspirin 81 mg but not clopidogrel
given the relatively large size of accumulative lesions. Starting atorvastatin 40 mg nightly.
Past Medical History:�Asthma, orthostatic hypotension, peripheral neuropathy, mild cognitive impairment
Procedure History:�Right shoulder surgery for rotator cuff tear
Family History:�Arthritis in mother
�
Social History:�
Functional Level Premorbidly: Independent with all activities�
Functional Level Currently:��OT: Significant assistance for lower body ADLs, moderate assistance for toileting, transfers and functional mobility in room and bathroom with rolling walker; minimal assistance for balance during standing, grooming at
sink. Will benefit from continued OT and skilled rehab. PT: Mod assist for mobility and assist to navigate due to field cut. Will benefit from skilled rehab
�
Speech Therapy Evaluation:
Pt with chronic risk factor of dysphagia including asthma/COPD, acutely compounded by acute CVA. Despite this, oropharyngeal swallow appears functional at bedside. No overt s/sx of aspiration across session, CXR without pneumonia, WBC WNL, and pt
without dysphagia hx.
Recommend:
1. Continue regular solids and thin liquids
2. Medications as tolerated
3. General aspiration precautions
4. Partial assistance with PO given L sided weakness
5. NET ARCHITECT to follow to monitor tolerance of diet and administer cognitive assessment as appropriate.
Tobacco: Denies�
Alcohol: Denies�
Drug use: Denies�
�
Lives with:�Alone
24-hour assistance available:�[facility]
Number of floors:�1
Driving:�No
Occupation:�Retired
��
�
Allergies:��
�
Allergy/AdvReac Type Severity Reaction Status Date / Time
chocolate flavor Allergy respiratory Verified 02/11/25 13:57
symptoms
Casey And Derivatives Allergy eczema Verified 02/11/25 13:57
latex Allergy unsure, Verified 02/11/25 13:57
tested high
environmental allergies Allergy respiratory Uncoded 02/11/25 13:57
symptoms
melons Allergy respiratory Uncoded 02/11/25 13:57
symptoms
opiates, codeine + morphine Allergy violently Uncoded 02/11/25 13:57
ill
Review of Systems:�
Constitutional: (x) abNormal _tired
Eye: Unable to see objects in left side of visual field
Ear/Nose/Throat: (x) Normal _�
Respiratory: (x) Normal _�
Cardiovascular: (x) Normal _�
Gastrointestinal: (x) Normal _�
Genitourinary: (x) Normal _�
Musculoskeletal: Right arm weakness. Pain at posterior neck/skull base. Pain at right temporal bone, where she hit her head
Integumentary: (x) Normal _�
Neurologic: (x) Normal _�
Psychiatric: (x) Normal _�
Endocrine: (x) Normal _�
Hematologic/Lymphatic: (x) Normal _�
Allergic/Immunologic: (x) Normal _�
�
Medications:�
�
Generic Name Dose Route Start Last Admin
Trade Name Freq PRN Reason Stop Dose Admin
Acetaminophen 650 mg 02/11/25 18:20 02/12/25 20:56
Acetaminophen 325 Mg Tablet PO 03/11/25 18:19 650 mg
Q4HPRN PRN Administration
FERNANDEZ, mild pain, or temp >100.4F
Aspirin 81 mg 08/04/25 18:00 02/13/25 08:39
Aspirin 81 Mg (Enteric Coated) Tablet PO 03/12/25 17:59 81 mg
DAILY DELIO Administration
Atorvastatin Calcium 40 mg 02/12/25 18:00 02/12/25 17:07
Atorvastatin (Lipitor) 40 Mg Tablet PO 03/12/25 17:59 40 mg
QPM DELIO Administration
Fluticasone Propionate 1 puff 02/11/25 22:00 02/13/25 07:27
Fluticasone 44 Mcg Inhaler INH 03/11/25 21:59 Not Given
R BID DELIO
Gabapentin 300 mg 02/11/25 22:00 02/12/25 20:52
Gabapentin 300 Mg Capsule PO 03/11/25 21:59 300 mg
HS DELIO Administration
Hydralazine HCl 5 mg 02/11/25 18:20
Hydralazine 20 Mg/Ml Vial IV 03/11/25 18:19
Q4HPRN PRN
BP > 180/105 mmHg
Hydroxychloroquine Sulfate 200 mg 02/12/25 08:00 02/13/25 08:39
Hydroxychloroquine 200 Mg Tablet PO 03/12/25 07:59 200 mg
DAILY DELIO Administration
Lorazepam 0.5 mg 02/11/25 20:00 02/13/25 08:40
Lorazepam 0.5 Mg Tablet PO 03/11/25 19:59 0.5 mg
BID DELIO Administration
Melatonin 5 mg 02/11/25 22:00 02/12/25 20:53
Melatonin 5 Mg Tablet PO 03/11/25 21:59 5 mg
HS DELIO Administration
Mirtazapine 7.5 mg 02/11/25 22:00 02/12/25 20:52
Mirtazapine 15 Mg Regular Release Tablet PO 03/11/25 21:59 7.5 mg
HS DELIO Administration
Polyethylene Glycol 17 grams 02/11/25 20:00 02/13/25 08:40
Polyethylene Glycol Powder 17 Grams Packet PO 03/11/25 19:59 17 grams
BID DELIO Administration
Propranolol HCl 10 mg 02/11/25 20:00 02/13/25 08:39
Propranolol 10 Mg Regular Release Tablet PO 03/11/25 19:59 10 mg
BID DELIO Administration
Sertraline HCl 25 mg 02/12/25 08:00 02/13/25 08:39
Sertraline 25 Mg Tablet PO 03/12/25 07:59 25 mg
DAILY DELIO Administration
Sodium Chloride 0 flush 02/11/25 21:00
Sodium Chloride 0.9% (Flush) Syringe IV 03/11/25 20:59
PER PROTOCOL DELIO
Vitals:�
�
Temp Pulse Resp BP Pulse Ox
98.3 F 65 16 156/67 96
02/13/25 08:17 02/13/25 10:00 02/13/25 10:00 02/13/25 08:04 02/13/25 08:00
Height 5 ft 2 in
Actual Weight 51 kg
Body Mass Index (BMI) 20.6
Physical Exam:�
General Appearance/Observation: Well-developed, well-nourished individual in no apparent distress.�
Pain/Comfort Assessment: Posterior head and right temporal area
Mood/Affect: Appropriate�
�
Integumentary/Operative Site:�Ecchymosis under hair at her right temporal bone, where patient says she hit her head
Ecchymosis at nape of neck bilaterally, extending from right superior side. Patient denies hitting nape of neck
Large ecchymosis covering left hand. Patient denies remembering hitting that hand. Also with a few ecchymotic areas over the arms and legs.
�� Pressure Ulcer Evaluation: absent over heels.�
�
Eyes: Conjunctiva/Lids: normal Pupils: pupils equal round and reactive to light and Accommodation�
Ears/Nose/Throat: oral mucosa moist,� throat clear. Lips/Teeth/Gums: normal�
Neck: No muscle spasm or tenderness�
Cardiovascular: Heart: regular, no murmur�
Pulses: Radial 2+ bilaterally�
Respiratory: Respiratory Effort/Chest Expansion: normal. Auscultation: Clear to auscultation bilaterally�
Gastrointestinal: abdomen not tender, no distension, normal abdominal bowel sounds�
Genitourinary: No Roper�
Rectal Exam: Deferred�
Extremities: Edema: None Cyanosis: None Trophic changes: None�
�
�
Neurology Exam:�
Orientation: Alert, Oriented to self, Time, Place�
Comprehension: Intact�
�
Cranial Nerves:�
�� CNII: Pupillary light reflex: Intact��� Visual Field: Left homonymous hemianopsia
�� CN III, IV, : Extraocular muscles: Intact��
�� CN V: Facial Sensation at Forehead: Intact, Maxilla: Intact, Mandible: Intact �
�� CN VII: Facial movement: Mild left facial weakness
�� CN VIII: Hearing: Normal�
�� CN IX/X: Speech & swallow: Normal, Position of Uvula: Midline�
�� CN XI: Shoulder shrug: Slight decreased on left
�� CN XII: Tongue protrusion: Midline�
�
Sensory:�
�� Light touch: Light touch intact in bilateral upper lower extremities. Does have extinction to on left to double simultaneous stimulation
�
Reflexes:�
�� Biceps: 2+ bilaterally�
�� Brachioradialis: 2+ bilaterally�
�� Triceps: 2+ bilaterally�
�� Patellar: 2+ bilaterally�
�� Achilles: 0 bilaterally�
�� Babinski: Down going bilaterally�
�� Clonus: None�
�� Mack: Negative bilaterally�
Cerebellar: Dysmetria/Ataxia: left dysmetria�
�
Musculoskeletal:�With left upper extremity, able to hold remote, lift remote, pronate, supinate, and greatest weakness is shoulder abduction
�Motor: (Manual muscle scale 0-5)�
Muscle� SA� EF� WE� EE� FF� FA� HF� KE� DF� EHL� PF�
Right��� 4� 4� 5� 4� 4� 4� 4� 5� 5� 5� 5�
Left� 2� 4� 4� 3+� 4� 4� 3� 4� 5� 5� 5�
�
Tone: Normal in all extremities�
Range of Motion: Passively within normal limits in all extremities�
�
Lab Results�
��
02/13/25 05:11
02/13/25 05:11
WBC 6.6 10^3/uL (4.8-10.8) 02/13/25 05:11
Hgb 11.4 g/dL (12.0-16.0) L 02/13/25 05:11
Hct 34.8 % (37.0-47.0) L 02/13/25 05:11
MCV 92.1 fL (81.0-99.0) 02/13/25 05:11
Plt Count 224 10^3/uL (130-400) 02/13/25 05:11
PT 13.1 Sec (11.4-14.6) 02/12/25 03:28
INR 0.96 02/12/25 03:28
Sodium 139 mmol/L (135-145) 02/13/25 05:11
Potassium 4.0 mmol/L (3.5-5.1) 02/13/25 05:11
Chloride 111 mmol/L (98-107) H 02/13/25 05:11
Carbon Dioxide 26 mmol/L (22-30) 02/13/25 05:11
BUN 11 mg/dl (7-17) 02/13/25 05:11
Creatinine 0.6 mg/dL (0.6-1.0) 02/13/25 05:11
eGFR > 60.00 02/13/25 05:11
Glucose 90 mg/dl (70-99) 02/13/25 05:11
Hemoglobin A1c 5.7 % (4.0-5.6) H 02/12/25 03:28
Calcium 8.9 mg/dl (8.4-10.2) 02/13/25 05:11
Phosphorus 4.0 mg/dl (2.5-4.5) 02/12/25 03:28
Magnesium 2.0 mg/dl (1.6-2.3) 02/12/25 03:28
Total Bilirubin 0.6 mg/dl (0.2-1.3) 02/11/25 14:06
AST 21 U/L (14-36) 02/11/25 14:06
ALT 16 U/L (0-35) 02/11/25 14:06
Alkaline Phosphatase 62 U/L (38-126) 02/11/25 14:06
Total Protein 6.3 g/dl (6.3-8.2) 02/11/25 14:06
Albumin 3.8 g/dl (3.5-5.0) 02/11/25 14:06
Diagnostic Results: as per HPI�
�
Brain MRI 02/12/25
Large number of acute infarcts in the right cerebral hemisphere. Small focus of presumed petechial hemorrhage associated with one of the infarcts in the right parietal lobe.
Carotid U/S 02/12/25
Negative for flow-limiting carotid stenosis. By velocity criteria, any internal carotid artery stenosis present is in the range of 0-49%.
Head CT 02/11/25 5:16 pm
There is a new central and left paracentral posterior scalp hematoma. No evidence for calvarial fracture.
No evidence for acute intracranial hemorrhage.
Cervical spine CT 02/11/25
No evidence of acute fracture or dislocation.
Head neck CTA 02/11/25
Focal calcification involving the proximal right internal carotid artery. There is streak artifact involving the proximal right ICA, limiting evaluation. Measured diameter reduction of 41%. Consider further evaluation with cerebrovascular ultrasound.
Mild calcification at the junction of the left carotid bulb and proximal left ICA with less than 25% diameter reduction.
No evidence for intracranial large vessel occlusion or high-grade stenosis
No significant narrowing of the vertebral or basilar arteries.
See above narrative for additional findings.
Percent stenosis is calculated using NASCET criteria.
Head CT 02/11/25 2:44 pm
No evidence of acute intracranial abnormality
Assessment�
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
stroke. Pending PT/OT evaluation 24 hours after TNK.
Plan��
PM&R PT/OT to increase independence with ADLs, improve balance, coordination, endurance, strength, mobility, community reintegration, decreased burden of care on others and family education.�
�
CVA: Secondary prophylaxis with aspirin 81 mg po daily, atorvastatin 40 mg, and blood pressure control (SBP less than 180 and diastolic less than 100 to participate with therapy for ischemic stroke). Continue to monitor neurologic status.��
Left nondominant hemiparesis: High risk for falls and sliding out of chair/bed. Safety reinforced.�
- Avoid using affected arm to help lift or pull patient as this will cause trauma to the shoulder.�
Left-sided ataxia: Makes patient high risk for falls
Left neglect: Makes patient at increased risk for falls, work on scanning. She is able to go from the right visual field into the left visual field for tracking which is a positive sign.
Left to homonymous hemianopsia: True visual field cut versus neglect. Continue to monitor and evaluate. Makes patient at increased risk for falls. Work on scanning to the left.
Falls: Likely multifactorial�
- Peripheral polyneuropathy: Makes patient at high risk for falls.� Consider checking TSH, iron studies, B12, folate.
- Check vitamin D level
- History of orthostasis: Monitor orthostatics.�
��
HTN: Propranolol 10 mg twice daily. Suggest hydralazine changed to oral as needed, monitor closely�
Normocytic anemia: Likely multifactorial.� Has multiple ecchymotic areas, continue to monitor skin and hemoglobin�
Anxiety/depression/insomnia: Psychology consult.� Monitor mood, adjust sertraline 25 mg p.o. daily as needed
Skin: monitor for pressure sores/rashes/lesions. Monitor numerous ecchymotic areas.�
Pain: acetaminophen as needed.�
Chronic constipation: Colace and Senna, PRN bisacodyl.�
Bladder: Time void, PVRs, PRN straight cath.�
DVT Prophylaxis: Mechanical, suggest p.o. prophylaxis when okay with neurology
Pulmonary: Incentive spirometry�
Safety: Continue to reinforce assistance with all transfers.�
Code Status:� DNR�as discussed with patient and daughter
Dispo (date/plan/equipment needs): Plan to return to [facility]
Functional and Medical Goals: Modified Independent with ADL�s, ambulation, transfers�
Discharge destination: Acute inpatient rehabilitation given her significant deficits and monitoring of her medical concerns including orthostasis
Attending Statement: Late entry
I saw and examined the patient 02/13/2025 with resident. Reviewed care plan with patient, daughter, and resident Dr. Esparza. I agree with the above subjective and review of system as addended. Above physical exam, and plan represents my physical exam
and plan as documented. A total of 80 minutes were spent with the patient preparing for the evaluation, obtaining history, performing examination and evaluation, counseling, data review, case management, care coordination, order packer or packager, and EMR
documentation.
Summary of recommendations:�
- Discharge Destination: Acute inpatient rehabilitation
CVA: Secondary prophylaxis with aspirin 81 mg po daily, atorvastatin 40 mg, and blood pressure control (SBP less than 180 and diastolic less than 100 to participate with therapy for ischemic stroke). Monitor neurologic status.��
Left nondominant hemiparesis: High risk for falls and sliding out of chair/bed. Safety reinforced.�
- Avoid using affected arm to help lift or pull patient as this will cause trauma to the shoulder.�
Left-sided ataxia: Makes patient high risk for falls
Left neglect: Makes patient at increased risk for falls, work on scanning. She is able to go from the right visual field into the left visual field for tracking which is a positive sign.
Falls:
- Peripheral polyneuropathy: Consider checking TSH, iron studies, B12, folate.
- Check vitamin D level
- History of orthostasis: Monitor orthostatics.�
Normocytic anemia: Likely multifactorial.� Has multiple ecchymotic areas, continue to monitor skin and hemoglobin�
Chronic constipation: Colace and Senna, PRN bisacodyl.�
Bladder: Time void, PVRs, PRN straight cath.��
DVT Prophylaxis: suggest p.o. prophylaxis when okay with neurology
Will continue to follow patient.�
�
Thank you for allowing me to care for your patient. Please contact me with any questions or concerns.�
--- NOTE | 2025-02-13 12:33 | PTOTSP ---
Speech Therapy Evaluation:
Given large number of acute infarcts in R cerebral hemisphere, the Ballard Cognitive Assessment (MoCA) was administered. Version 8.1 BLIND was administered given L sided visual cut. Pt earned an overall score of 13/22, indicative of moderate
cognitive impairment per parameters of this assessment. Pt demonstrated reductions in attention, language, delayed recall, and orientation. Of note, pt attributed results to being tired and sad over current hospitalization. Pt does have known mild
cognitive impairment, therefore difficult to differentiate new versus old impairments. 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
note, pt does not drive)
--- NOTE | 2025-02-13 13:16 | CM ---
Discharge POC: Therapy recommendation for SNF. On admission patient noted her preference would be [facility] because that is where her is for LTC. This CM called and spoke with son, Jose, who is in agreement with [facility]. He also
noted that his father is dying and is being placed on Comfort measures. Referral will be made.
--- NOTE | 2025-02-13 13:28 | CON.CAR ---
Addendum entered and electronically signed by Chirag Tineo MD 02/13/25 17:04:
I saw and evaluated the patient. I reviewed the resident�s note and agree with findings and plan as documented in the resident�s note.
89-year-old female who lives at [facility] with a history of rheumatoid arthritis who presented with dizziness and collapse found to have a large right cerebral hemisphere CVA. We are asked to evaluate for possible embolic cause. Currently she
is without complaint. On exam, she has a large area of ecchymosis over the left midline to dorsal aspect of her neck, regular rate and rhythm normal S1-S2 no murmurs gallops were appreciated lungs were clear to auscultation bilaterally. EKG shows
normal sinus rhythm telemetry was without arrhythmia. Echocardiogram on 02/12/2025 was normal. She presented with syncope and collapse likely in the setting of CVA. Will arrange for a long-term 30-day monitor to evaluate for possible paroxysmal
atrial fibrillation as a cause of her CVA. So far nothing on monitor worker. I explained the benefits of diagnosing atrial fibrillation if present as this would change our approach to anticoagulation from current antiplatelet plan. Agree with
below that JUAN of limited utility given her age. However would intensify statin.
Will arrange for monitor to be mailed to her daughter as she will bring it to what ever rehab she goes to.
Thank you for allowing us to participate in her care. Okay for discharge from a cardiovascular perspective. No further recommendations at this time. Please call back with questions.
Original Note:
Consultation
Consultation Request
Date/Time Consultation Requested: 02/13/25
Date/Time Consultation Performed: 02/13/25
Medical History
-
Chief Complaint: Left-sided weakness
History of Present Illness:
Patient is an 89-year-old female with past medical history significant for asthma, anxiety/depression, peripheral neuropathy, rheumatoid arthritis who presented with complaint of left-sided weakness. She is a resident at [facility] and on 02/11,
she noticed that when she tried to start an apple after breakfast which she had heaviness of her left arm, she dropped the knife and then collapsed on the floor. She was brought to the ER, stroke alert was called and she received TNK.
She denies any chest pain, shortness of breath, exertional dyspnea, palpitations, syncopal episodes, nausea, vomiting or any near syncopal episodes.
No documented arrhythmias and no past medical history of ND, stents or heart failure.
Cardiology consulted for evaluation for secondary prevention of stroke
Past Medical History
Past Medical History: Asthma, Psychiatric (Anxiety/depression) and Other (orthostatic hypotension, peripheral neuropathy, mild cognitive impairment,Rheumatoid arthritis)
Social History
Tobacco: Non-Smoker
Alcohol: None
Drug: None
Personal:
Living: Other (Her is not [facility] and she lives in [facility]. She has 2 daughters and a son. Her son lives in [place] and is a collections representative. 1 daughter lives in [place] and that is the one she sees often)
Employment: Not Employed
Family History
Family History: Reviewed & Not Pertinent
Allergies / Home Medications
Allergy/AdvReac Type Severity Reaction Status Date / Time
chocolate flavor Allergy respiratory Verified 02/11/25 13:57
symptoms
[employer] Allergy eczema Verified 02/11/25 13:57
latex Allergy unsure, Verified 02/11/25 13:57
tested high
environmental allergies Allergy respiratory Uncoded 02/11/25 13:57
symptoms
melons Allergy respiratory Uncoded 02/11/25 13:57
symptoms
opiates, codeine + morphine Allergy violently Uncoded 02/11/25 13:57
ill
�Medication �Instructions �Recorded �Confirmed �Type
hydroxychloroquine 200 mg tablet 200 mg PO DAILY RHEUMATOID 11/15/16 02/11/25 History
ARTHRITIS
lorazepam 0.5 mg tablet 0.5 mg PO BID Mental Health/Anxiety 11/15/16 02/11/25 History
calcium 315 mg (as 1 tab PO DAILY Supplement 02/11/25 02/11/25 History
citrate)-vitamin D3 5 mcg (200
unit) tablet (Calcium Citrate + D)
carboxymethylcellulose sodium 1 % 1 drp ophthalmic (eye) QID Eye 02/11/25 02/11/25 History
eye drops (Artificial Tears Condition
(carboxymethylcellulose))
gabapentin 300 mg capsule 300 mg PO HS Pain 02/11/25 02/11/25 History
melatonin 5 mg tablet 5 mg PO HS sleep 02/11/25 02/11/25 History
mirtazapine 15 mg tablet 7.5 mg PO HS Mental Health/Anxiety 02/11/25 02/11/25 History
mometasone 220 mcg/actuation(30 1 inh inhalation HS Lung/Breathing 02/11/25 02/11/25 History
doses) breath activated powder Issues
inhaler (Asmanex Twisthaler)
multivitamin 1 tab PO DAILY Supplement 02/11/25 02/11/25 History
polyethylene glycol 3350 17 17 g PO BID Constipation 02/11/25 02/11/25 History
gram/dose oral powder (Miralax)
propranolol 10 mg tablet 10 mg PO BID TACHYCARDIA 02/11/25 02/11/25 History
sertraline 25 mg tablet 25 mg PO DAILY Mental 02/11/25 02/11/25 History
Health/Anxiety
Review of Systems
-
All other systems: Negative unless noted
Physical Exam
Vital Signs
Temp Pulse Resp BP Pulse Ox
98.1 F 65 16 156/67 96
02/13/25 12:00 02/13/25 10:00 02/13/25 10:00 02/13/25 08:04 02/13/25 08:00
Lab Results
02/13/25 05:11
02/13/25 05:11
Physical Exam
General: No Apparent Distress and Comfortable
HEENT: Anicteric and Moist Mucous Membranes
Respiratory: Clear; Negative Wheezes, Crackles or Rhonchi
Cardiac: S1/S2 and Regular Rhythm; Negative Murmur, Rub, Peripheral Edema or JVD
GI: Soft and Non Tender
Musculoskeletal: No Clubbing, No Cyanosis and No Edema
Skin: Warm and Dry
Neuro: Awake and AO x 3
Psych: Calm
Impression / Plan
-
Impression
89-year-old female with acute ischemic stroke.
Cardiology evaluation to date includes no documented arrhythmias or atrial fibrillation on baseline EKG and cardiac monitoring
No significant carotid stenosis on carotid ultrasound
No episodes of atrial fibrillation on telemetry
Normal transthoracic echocardiography without definite evidence of structural heart disease/thrombus.
Assessment/plan
#Cardiac rhythm monitoring
Given absence of arrhythmias and a normal TTE, will do holter monitor for 30 days to detect paroxysmal atrial fibrillation, discussed with the patient and she is okay with the monitor.
#TTE is normal. It did not reveal any patent keith ovale and there is not enough high suspicion to pursue a JUAN for embolic source.
#Agree with Aspirin 81 mg daily.
#Patient does not smoke or drink, blood pressure looks good.
#HbA1c 5.7
#LDL is 77, continue statins
Asthma-stable
Rheumatoid arthritis-on hydroxychloroquine 200 mg daily, stable
Anxiety/depression -stable on mirtazapine, sertraline, lorazepam
Uses gabapentin for peripheral neuropathy
Data reviewed
#Brain MRI 02/12/25
Large number of acute infarcts in the right cerebral hemisphere. Small focus of presumed petechial hemorrhage associated with one of the infarcts in the right parietal lobe.
Carotid U/S 02/12/25
Negative for flow-limiting carotid stenosis. By velocity criteria, any internal carotid artery stenosis present is in the range of 0-49%.
Head CT 02/11/25 5:16 pm
There is a new central and left paracentral posterior scalp hematoma. No evidence for calvarial fracture.
No evidence for acute intracranial hemorrhage.
Cervical spine CT 02/11/25
No evidence of acute fracture or dislocation.
--- NOTE | 2025-02-13 16:28 | PTCARENOTE ---
Report given to Denice on 4E. Pt to wheelchair with rolling walker after voiding in BR. To [id number] with transporter.
[2025-02-13] MEDS: LIPITOR 40 MG PO (18:10)
[2025-02-13] MEDS: FLOVENT 44 MCG INHALER 1 PUFF INH (19:27)
[2025-02-13] MEDS: REMERON 7.5 MG PO (20:33)
[2025-02-13] MEDS: NEURONTIN 300 MG PO (20:33)
[2025-02-13] MEDS: MELATONIN 5 MG PO (20:33)
[2025-02-13] MEDS: TYLENOL 650 MG PO (21:22)
[2025-02-14 03:53] VITALS: BP 115/51
[2025-02-14 07:35] VITALS: BP 127/50
[2025-02-14] MEDS: FLOVENT 44 MCG INHALER 1 PUFF INH (08:00)
--- NOTE | 2025-02-14 08:38 | W.PN.HOSP.TC ---
Addendum entered and electronically signed by Imelda Moody MD 02/14/25 15:10:
Addendum
Discharge plan discussed with catalytic case operator. Agreed to go for acute rehab per my discussion with patient's son.
Total discharge time spent to see the patient, examine the patient, review data and lab results, discuss discharge plan with patient, catalytic case operator, nursing staff around 65 minutes
Original Note:
Today's Communication/Plan
-
discharge
Assessment / Plan
Assessment / Plan
Physical Exam
General: Comfortable and Conversant
HEENT: Anicteric and Moist mucous membranes
Respiratory: Clear and Non Labored Respirations
Cardiac: S1/S2 and Regular Rhythm
GI: Soft and Non Tender
Rectal: Deferred by Provider
Musculoskeletal: No Clubbing, No Cyanosis and No Edema
Skin: Warm and Dry
Neuro: Awake, Alert, No Motor Deficits (During my evaluation) and Facial Droop (Left facial )
Psych: Calm
Acute Right Parietal Stroke
MRI showed: Numerous foci of restricted diffusion in the right cerebral hemisphere compatible with acute infarcts. Greatest involvement of the right frontal lobe and right parietal lobe, to a lesser degree the right occipital lobe and right temporal
lobe. Small focus of susceptibility associated with one of the larger infarcts in the right parietal lobe (series 401, image 19) suggesting petechial blood products.
Possibly embolic.
No evidence of cardiac arrhythmias on tele monitor.
-Patient evaluated by Neurology and given Tenecteplase 02/11
-atorvastatin 40 mg due to LDL greater than 70 although limited probable help in a person of this advanced age
- HGB A1C 5.7 . LDL 77
- Carotid US as Neck CT indicates focal calcification of right internal carotid artery but limited evaluation due to streak artifact. US showed Negative for flow-limiting carotid stenosis. By velocity criteria, any internal carotid artery stenosis
present is in the range of 0-49%.
-d/w neurology, dc on aspirin only, avoid dual plt therapy due to large stroke size/ lesions.
Appreciate neurology &cardiology & ICU doctors help
Asthma / Bronchiectasis, no acute exacerbation
-Continue Asmanex
Peripheral Neuropathy
-Continue gabapentin
Mild Cognitive Impairment
per son: hx of dementia.
-Monitored mental status
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
-Continue lorazepam
-Continue sertraline
-Continue mirtazapine and melatonin
Rheumatoid Arthritis
-Continue hydroxychloroquine
DVT proph: SCDs
Code Status: DNR per Transfer Paperwork and confirmed with daughter Omid via phone at time of admission
Total time spent to see the patient, examine the patient, review data and lab results, discuss treatment plan with patient, neurologist, nursing staff around 55 minutes
Anticipated Discharge: Today
Subjective/Interval History
-
Date of Service: February 14, 2025
No complaints
No chest pain
No sob
Objective Data
-
Vital Signs:
Vital Signs
Temp Pulse Resp BP Pulse Ox
97.7 F 78 20 127/50 96
02/14/25 07:35 02/14/25 08:05 02/14/25 08:05 02/14/25 07:35 02/14/25 08:05
I&O
02/13/25 02/14/25 02/15/25
06:59 06:59 06:59
Intake Total 1520 / 1520 720 / 720
Output Total 500 / 500
Balance 1020 / 1020 720 / 720
[2025-02-14] MEDS: ATIVAN 0.5 MG PO (09:10)
[2025-02-14] MEDS: INDERAL 10 MG PO (09:11)
[2025-02-14] MEDS: PLAQUENIL 200 MG PO (09:11)
[2025-02-14] MEDS: ASPIR LOW (ENTERIC COATED) 81 MG PO (09:11)
[2025-02-14] MEDS: ZOLOFT 25 MG PO (09:12)
[2025-02-14] MEDS: MIRALAX 17 GRAMS PO (09:12)
[2025-02-14 10:45] LABS: COVID-19 Antigen Negative (Negative)
[2025-02-14 11:05] VITALS: BP 115/49
--- NOTE | 2025-02-14 11:48 | CM ---
MD entered order for discharge.
PT OT indicated SNF.
PMR recommended acute rehab
Family requested SNF stay at [facility] . Zohra said no beds at [facility] .
Spoke with Son Dr Jose Starr . He requested [facility] . [facility] bed available.
As per PMR eval pt accepted to [facility].
Contacted Perla [phone] from [facility]. No Beds available at [facility] but at [place] and .
Reviewed with son Jose who spoke with pt and picked [facility] in [place] .
Perla notified she accepted requested ambulance at 4 pm today.
Medical nec forms completed.
IMM reviewed and emailed to [email or web address] . He said she received IMM
[facility]
report [phone]
fax [phone]
JR To [facility] today
--- NOTE | 2025-02-14 15:03 | W.DCSUMMARY ---
Discharge Summary
Discharge Data
Date of Admission: 02/11/25
Date of Discharge: 02/14/25
-
Pending Results: No
Hospital Course
89 years old female came in from home after experiencing left-sided weakness. Patient was admitted under stroke alert. CAT scan of the head/ CTA of the head and neck did not show acute findings. She was evaluated by neurologist. Patient was
given Tenectaplase and admitted to the ICU. Patient was monitored closely under [facility] stroke protocol. She she complained of headache and a repeat CT of the head showed new central and left paracentral posterior scalp hematoma with no evidence of
fracture or intracranial hemorrhage. Patient was evaluated by mobile ui developer. She did not need oxygen support. MRI of the brain showed acute numerous right cerebral hemisphere infarcts. Greatest involvement of the right frontal lobe and right
parietal lobe, to a lesser degree the right occipital lobe and right temporal lobe. Echocardiogram showed LVEF 55 to 60% with no significant valvular disease and no evidence of shunting. Patient was evaluated by supervisor byproducts and was set up for
outpatient heart monitoring to rule out cardiac arrhythmias. Neurologist recommended statin and aspirin treatment. Did not recommend dual antiplatelet therapy due to numerous accumulative lesions in the brain to avoid risk of hemorrhage. Patient
remained hemodynamically stable. She was evaluated by speech/PT/OT. She was evaluated by Dr. Calderón for rehab. Patient had history of cognitive impairment/dementia. She did not have agitation or delirium. She continued to have mild left upper
extremity weakness against gravity. orchard manager was involved in discharge planning. Discharge plan was discussed with family and patient was discharged to acute rehab in a stable condition.
Discharge Plan
-
Patient Disposition: Care Home/SNF
Discharge Diagnosis/Procedures: Acute numerous right cerebral hemisphere infarcts. Greatest involvement of the right frontal lobe and right parietal lobe, to a lesser degree the right occipital lobe and right temporal lobe. Patient was seen by
neurologist. Recommended aspirin 81 mg with statin.
Mild dementia
Peripheral neuropathy
Asthma/bronchiectasis
Anxiety/depression/insomnia with benzodiazepine dependence
Rheumatoid arthritis
Diet: As tolerated
Others Tests: A conveyor monitor has been ordered for you. Per your request, it has been mailed to your daughter's address.
Referrals:
Mary Calvin MD [Family Provider, Internal Medicine]
Noe Sarah MD [Active, Neurology] - in one month
Prescriptions:
New
atorvastatin 40 mg Tablet
40 mg PO QPM Qty: 30 0RF
acetaminophen 325 mg Tablet
650 mg PO Q4HPRN PRN (Reason: FERNANDEZ, mild pain, or temp >100.4F) Qty: 10 0RF
aspirin 81 mg Tablet,Delayed Release (Dr/Ec)
81 mg PO DAILY Qty: 30 0RF
Continued
hydroxychloroquine 200 MG tablet
200 mg PO DAILY
lorazepam 0.5 MG tablet
0.5 mg PO BID
propranolol 10 mg Tablet
10 mg PO BID
sertraline 25 mg Tablet
25 mg PO DAILY
mirtazapine 15 mg Tablet
7.5 mg PO HS
Rx Instructions:
half tab
melatonin 5 mg Tablet
5 mg PO HS
multivitamin Tablet
1 tab PO DAILY
gabapentin 300 mg capsule
300 mg PO HS
polyethylene glycol 3350 [Miralax] 17 gram/dose Powder
17 g PO BID
calcium citrate-vitamin D3 [Calcium Citrate + D] 315 mg-5 mcg (200 unit) Tablet
1 tab PO DAILY
Asmanex Twisthaler 220 mcg/ actuation (30) aerosol powdr breath activated
1 inh INHALATION HS
Changed
Artificial Tears (cmc) 1 % Drops
1 drp ophthalmic (eye) BID Qty: 0 0RF
Discharge Orders:
Discharge Patient (As Directed); Ordered 02/14/25
Ordered By: Imelda Moody
Discharge Date and Time
Print Language: YEMENI
[2025-02-14 15:32] VITALS: BP 120/98
== END 2025-02-14 16:06 | DRG 62 ==
LOC: 4 EAST ACU 17:13
PROVIDERS: Nurse Practitioner Family; Physician Assistant; Physician Assistant Medical; ADMITTING PHYSICIAN Internal Medicine; ATTENDING PHYSICIAN Internal Medicine; CONSULT PHYSICIAN Internal Medicine Cardiovascular Disease; CONSULT PHYSICIAN Physical Medicine & Rehabilitation; CONSULT PHYSICIAN Psychiatry & Neurology Clinical Neurophysiology; EMERGENCY PHYSICIAN Emergency Medicine; FAMILY PHYSICIAN Internal Medicine Geriatric Medicine; OTHER PHYSICIAN Internal Medicine Critical Care Medicine
PROC: 3E04317 Introduction of Other Thrombolytic into Central Vein, Percutaneous Approach (ICD-10-PCS; 2025-02-11)
DX: I63.431 Cerebral infarction due to embolism of right posterior cerebral artery (principal); F03.A18 Unspecified dementia, mild, with other behavioral disturbance; F03.A4 Unspecified dementia, mild, with anxiety; F03.A3 Unspecified dementia, mild, with mood disturbance; F13.20 Sedative, hypnotic or anxiolytic dependence, uncomplicated; R41.4 Neurologic neglect syndrome; J47.9 Bronchiectasis, uncomplicated; J44.89 Other specified chronic obstructive pulmonary disease; G62.9 Polyneuropathy, unspecified; F32.A Depression, unspecified; G47.00 Insomnia, unspecified; M06.9 Rheumatoid arthritis, unspecified; Z66 Do not resuscitate; R29.810 Facial weakness; I95.1 Orthostatic hypotension; K59.09 Other constipation; Z91.040 Latex allergy status; Z88.5 Allergy status to narcotic agent; S00.03XA Contusion of scalp, initial encounter; R53.1 Weakness; D64.9 Anemia, unspecified; E55.9 Vitamin D deficiency, unspecified; Z79.899 Other long term (current) drug therapy; Z82.61 Family history of arthritis; Z11.52 Encounter for screening for COVID-19
CPT/HCPCS: 0042T; 70450; 70496; 70498; 70551; 71045; 72125; 80048; 80053; 80061; 82962; 83036; 83735; 84100; 85025; 85027; 85610; 85730; 87811; 92523; 92526; 92610; 93005; 93306; 93880; 94640; 97163; 97167; 97530; 97535; 99285; J3101; Q9967